=== PATIENT | male | born 1945 | race Caucasian/White ===

== ENCOUNTER → 2021-04-30 15:13 | Outpatient (BNVA) | payer OTHER, SELFPAY | PROVIDERS: Referring Provider Family Medicine; Visit Provider Orthopaedic Surgery | DX: M54.9 Dorsalgia, unspecified (principal); M47.896 Other spondylosis, lumbar region | CPT/HCPCS: 72120 ==

== ENCOUNTER 2021-06-11 14:02 | Emergency (ER) | payer OTHER, SELFPAY ==
[2021-06-11 14:08] VITALS: BP 174/84; PULSE 76; RESP 18; TEMP 36.9; O2SAT 95; BMI 29.0
[2021-06-11 14:19] VITALS: BP 150/74; PULSE 71; RESP 16; O2SAT 97
--- NOTE | 2021-06-11 14:26 | CT_ITS ---
WS: [id number] CT ABDOMEN AND PELVIS WITH CONTRAST HISTORY: lower abdominal pain, extensive ecchymosis TECHNIQUE: Imaging performed of the abdomen and pelvis with IV contrast. Single phase imaging of the abdomen. Coronal and sagittal reformats are submitted. All CT scans at [facility] use at [address] one of these dose optimization techniques: automated exposure control; mA and/or kV adjustment per patient size (includes targeted exams where dose is matched to clinical indication); or iterative re construction. IV CONTRAST: Omnipaque 300; 95 mL IV. Oral contrast: No DLP: 1892.9 mGy.cm COMPARISON: None available. Lower thorax: Interstitial thickening peripherally the lungs. Mildly enlarged heart. No hiatal hernia . Liver/biliary system: Normal size liver. Single granuloma in the central liver. There is a lobulated low-attenuation mass in the posterior superior RIGHT lobe the liver towards the diaphragmatic surface . This mass measures 2.9 x 2.0 cm and abuts the diaphragmatic surface. This is not a simple cyst. No bile duct dilatation. Gallbladder: Normal. No gallstones or wall thickening. No pericholecystic fluid. Pancreas: Normal size pancreas and pancreatic duct. No adjacent inflammation. Spleen: Normal size spleen. No mass or infarct. Adrenal glands: Normal. Right kidney: Mild perinephric stranding. No GI tract obstruction. Left kidney: Very mild perinephric stranding. No solid mass or obstruction. Aorta: Moderate atherosclerosis with no aneurysm. Lymphadenopathy: None. Free fluid: None. GI tract: Stomach is nondistended. Appendix is normal. No GI tract obstruction. No evidence for acute diverticulitis or colitis. Abdominal wall: Soft tissue stranding and thickening involving the abdominal wall over the pelvis. No focal collection or abnormal enhancement. Most likely due to cellulitis or ecchymosis. Pelvis: No free fluid or adenopathy within the pelvis. Well-distended urinary bladder. Prostate gland is only minimally enlarged encroaching into the base of the urinary bladder. There is enlargement of the most inferior bilateral rectus abdominis muscles. Enlargement and heterogeneity, LEFT greater th an RIGHT. This is also the site of the superficial subcutaneous stranding. Bones: Moderate degenerative disc disease throughout the lumbar spine. L4 anterolisthesis by 3 mm. Mi ld anterior wedging of T11 and T12 by 10%. CT/CT abdomen pelvis w con* [id number] IMPRESSION: 1. Enlargement and heterogeneity within the inferior most bilateral rectus abd ominis muscles. Overlying subcutaneous soft tissue stranding. These findings ar e most consistent with a small amount of hemorrhage into the rectus abdominis m uscles with overlying edema or superficial soft tissue bleeding. Most significa nt changes involving the inferior LEFT rectus abdominis muscle. 2. No extension of blood or hematoma into the peritoneal cavity. 3. Lobulated soft tissue mass is not a simple cyst involving the superior RIGH T lobe of the liver towards the diaphragmatic surface. Recommend follow-up ultr asound evaluation. This may not be visible by ultrasound due to its position an d body habitus. Alternatively three-phase hepatic CT or MR liver CT with contra st may be necessary.
--- NOTE | 2021-06-11 14:26 | ED_ITS ---
Documented by User: AKUA Lainez 06/11/21 16:26 HPI - Abdominal Pain General: Chief Complaint: Abdominal Pain Stated Complaint: abdominal pain and bruising Time Seen by Provider: 06/11/21 14:18 Source: patient and family Mode of arrival: ambulatory Limitations: no limitations History of Present Illness: Patient is a nice 76-year-old male who presents to ED today along with his for concerns of abdominal pain and abdominal bruising. Patient states 3 days ago he was lifting something heavy when he immediately felt something pull/pop/tear in his abdomen and began noticing pain. He states over the past 3 days he has developed rather extensive ecchymosis to the lower abdomen. He states he doesn't have much pain at rest but states with any kind of movement-especially going from lying down to sitting up-causes quite a bit of discomfort. No lightheadedness or dizziness. No diaphoresis. He has no trouble with ambulating. MD elicited complaint: abdominal pain Onset (ago): day(s) Pain Consistency: intermittent Location: Other (across lower abdomen) Radiation: none Migration to: no migration Exacerbating factors: movement Relieving factors: rest Associated Symptoms: Denies change in bowel habits, chills, diarrhea, dysuria, fever(s), hematuria, nausea, syncope and vomiting Review of Systems Const: Denies: fever(s), chills or body aches Eyes: Denies: change in vision or blurry vision Card: Denies: chest pain, palpitations, irregular heart rhythm, edema, lightheadedness, syncope or pre-syncope Resp: Denies: dyspnea GI: Reports: abdominal pain; Denies: nausea, vomiting, diarrhea or change in bowel habits : Denies: flank pain, dysuria, hematuria, genital pain, testicular pain, testicular mass or scrotal swelling Musc: Denies: neck pain, back pain, extremity pain or joint pain Skin/Breast: Reports: other (abdominal ecchymosis); Denies: rash Neuro: Denies: headache(s), numbness in extremities, weakness in extremities, sensory changes, difficulty walking or dizziness PFS ED PFSH: Social History Smoking and tobacco status: never smoked Physical Exam Const: COMMON NORMALS: no acute distress, patient oriented x3, no limitations and alert GENERAL APPEARANCE: cooperative NUTRITIONAL APPEARANCE: overweight ORIENTATION/CONSCIOUSNESS: Yes awake, Yes oriented to person and Yes oriented to time Chest: COMMONS NORMALS: normal inspection of the chest and normal palpation of entire chest wall Resp: COMMON NORMALS: normal respiratory effort and clear to auscultation bilaterally EFFORT & INSPECTION: Yes able to speak in complete sentences AUSCULTATION: clear to auscultation bilaterally Cardio: COMMON NORMALS: regular rate and regular rhythm RATE: regular rate RHYTHM: regular rhythm GI: COMMON NORMALS: Soft to palpation and No hepatosplenomegaly present INSPECTION: Yes abdominal wall ecchymosis (extensive ecchymosis throughout lower abdomen ) AUSCULTATION: Yes normoactive bowel sounds PALPATION: Yes Soft to palpation, Yes Tenderness to palpation present (GI) (mild tenderness throughout lower abdomen), No Guarding due to palpation present (GI), No Rigid due to palpation and Yes No hepatosplenomegaly present : COMMON NORMALS: Yes no CVA tenderness BLADDER/KIDNEY EXAM: Yes no CVA tenderness Back/Pelvis: COMMON NORMALS: no CVA tenderness, thoracic and lumbar spine normal to inspection, no thoracic nor lumbar tenderness and thoraco-lumbar ROM normal Extremity: COMMON NORMALS: normal to inspection, capillary refill normal and no clubbing, cyanosis or edema Neuro: COMMON NORMALS: patient oriented x3, moves all extremities, no focal motor deficits, no sensory deficits noted and gait normal SENSORIUM/ORIENTATION: Yes alert, Yes oriented to person and Yes oriented to time Skin: NARRATIVE SKIN EXAM: see abdominal exam for pertinent skin findings Course Vital Signs: Vital signs: Vital Signs Temperature 98.5 F 06/11/21 14:08 Pulse Rate 71 06/11/21 14:19 Respiratory Rate 16 06/11/21 14:19 Blood Pressure 150/74 06/11/21 14:19 Pulse Oximetry 97 06/11/21 14:19 MDM - Abdominal Pain Medical Decision Making Patient has hematoma to his rectus abdominis muscles from lifting. Patient's vital signs are stable. He has no pain at rest. He has a normal hemoglobin- remainder of blood work is unremarkable. Patient is not on anticoagulation. UA does look suspicious for UTI however patient is completely asymptomatic. He does not have a history of UTIs. We will culture urine and can place on antibiotics if necessary. Patient was made aware of incidental finding of soft tissue mass involving his liver and the [facility]. Patient and verbalized understanding. Return to ED precautions given verbally to patient including worsening abdominal pain, worsening bruising, lightheadedness/dizziness/passing out episodes, or any other concerns they may have. Lab Data : 06/11/21 14:36 06/11/21 14:36 Labs/Radiology: Radiology Impressions Abdomen/Pelvis CT 06/11/21 14:26 IMPRESSION: 1. Enlargement and heterogeneity within the inferior most bilateral rectus abdominis muscles. Overlying subcutaneous soft tissue stranding. These findings are most consistent with a small amount of hemorrhage into the rectus abdominis muscles with overlying edema or superficial soft tissue bleeding. Most significant changes involving the inferior LEFT rectus abdominis muscle. 2. No extension of blood or hematoma into the peritoneal cavity. 3. Lobulated soft tissue mass is not a simple cyst involving the superior RIGHT lobe of the liver towards the diaphragmatic surface. Recommend follow-up ultrasound evaluation. This may not be visible by ultrasound due to its position and body habitus. Alternatively three-phase hepatic CT or MR liver CT with contrast may be necessary. Laboratory Results WBC 8.0 10^3/uL (4.0-10.0) 06/11/21 14:36 RBC 4.21 10^6/uL (4.1-5.3) 06/11/21 14:36 Hgb 12.7 g/dL (11.7-16.6) 06/11/21 14:36 Hct 39.1 % (42.0-52.0) L 06/11/21 14:36 MCV 92.9 fl (80-94) 06/11/21 14:36 MCH 30.2 pg (28.0-34.0) 06/11/21 14:36 MCHC 32.5 g/dL (30.0-36.0) 06/11/21 14:36 RDW 13.5 % (12.1-15.1) 06/11/21 14:36 Plt Count 207 10^3/cmm (130-400) 06/11/21 14:36 MPV 11.2 fL (7.4-10.4) H 06/11/21 14:36 Neut % (Auto) 71.1 % 06/11/21 14:36 Lymph % (Auto) 18.4 % 06/11/21 14:36 [place] % (Auto) 7.1 % 06/11/21 14:36 Eos % (Auto) 2.6 % 06/11/21 14:36 Baso % (Auto) 0.4 % 06/11/21 14:36 Neut # (Auto) 5.69 10^3/uL (1.8-7.7) 06/11/21 14:36 Lymph # (Auto) 1.5 10^3/uL (0.8-4.8) 06/11/21 14:36 [place] # (Auto) 0.6 10^3/uL (0.2-0.9) 06/11/21 14:36 Eos # (Auto) 0.2 10^3/uL (0.0-0.8) 06/11/21 14:36 Baso # (Auto) 0.0 10^3/uL (0.0-0.1) 06/11/21 14:36 Nucleated RBC % (auto) 0 % 06/11/21 14:36 Nucleated RBCs # 0.0 /100WBC 06/11/21 14:36 PT 12.70 SECONDS (12.1-14.9) 06/11/21 14:36 INR 0.92 (0.8-1.2) 06/11/21 14:36 APTT 28.3 SECONDS (23.9-36.7) 06/11/21 14:36 Sodium 133 mmol/L (136-145) L 06/11/21 14:36 Potassium 4.7 mmol/L (3.5-5.1) 06/11/21 14:36 Chloride 97 mmol/L (98-107) L 06/11/21 14:36 Carbon Dioxide 25 mmol/L (22-29) 06/11/21 14:36 Anion Gap 15.7 (5-19) 06/11/21 14:36 BUN 29 mg/dL (8-23) H 06/11/21 14:36 Creatinine 1.0 mg/dL (0.7-1.2) 06/11/21 14:36 GFR Calculation Not Reportable 06/11/21 14:36 Glucose 167 mg/dL (65-115) H 06/11/21 14:36 Calculated Osmolality 286 mOsm/kg (285-295) 06/11/21 14:36 Calcium 8.6 mg/dL (8.5-10.5) 06/11/21 14:36 Total Bilirubin 0.3 mg/dL (0.15-1.2) 06/11/21 14:36 AST 13 U/L (0-40) 06/11/21 14:36 ALT 9 U/L (0-41) 06/11/21 14:36 Alkaline Phosphatase 101 IU/L (40-130) 06/11/21 14:36 Total Protein 6.2 g/dL (6.6-8.7) L 06/11/21 14:36 Albumin 3.8 g/dL (3.5-5.2) 06/11/21 14:36 Globulin 2.4 g/dL (1.3-4.6) 06/11/21 14:36 Lipase 20 U/L (13-60) 06/11/21 14:36 Urine Color Yellow (Yellow) 06/11/21 14:49 Urine Appearance Sl cloudy (CLEAR) A 06/11/21 14:49 Urine pH 5 (5-7) 06/11/21 14:49 Ur Specific [place] 1.010 (1.005-1.030) 06/11/21 14:49 Urine Protein Neg (Negative) 06/11/21 14:49 Urine Glucose (UA) Norm (Normal) 06/11/21 14:49 Urine Ketones Negative (Negative) 06/11/21 14:49 Urine Blood Neg (Negative) 06/11/21 14:49 Urine Nitrate Positive (Negative) H 06/11/21 14:49 Urine Bilirubin Neg (Negative) 06/11/21 14:49 Urine Urobilinogen Neg mg/dL (Negative) 06/11/21 14:49 Ur Leukocyte Esterase 2+ (Negative) H 06/11/21 14:49 Urine RBC 0-4 /hpf (0-2) H 06/11/21 14:49 Urine WBC 55-80 /hpf (0-5) H 06/11/21 14:49 Ur Squamous Epith Cells Rare /hpf (0-5) 06/11/21 14:49 Amorphous Sediment Not Reportable 06/11/21 14:49 Urine Bacteria 2+ /hpf (NONE) H 06/11/21 14:49 Discharge Plan Discharge Patient Disposition: Home Clinical Impression: Strain of rectus abdominis muscle Condition: Stable Prescriptions: No Action No Known Home Medications 0RF Discharge Orders: Discharge ED (Routine); Ordered 06/11/21 Ordered By: Nicole Gramajo Activity Restrictions/Additional Instructions: As we discussed limit lifting over the next 2 to 3 weeks to 5 to 10 pounds. You may apply ice to abdomen for 15-20 mins every other hour (do not apply ice directly to skin). You need to return to the ED for worsening bruising, wo rsening abdominal pains, lightheadedness/dizziness/passing out episodes, or any other concerns you may have. Coding Level of Care Code ED Semaphore Operator for Chg Fwd Exam Comprehensive Documented by User: Larry Gillespie DO 06/11/21 16:58 HPI - Abdominal Pain General: Chief Complaint: Abdominal Pain Stated Complaint: abdominal pain and bruising Time Seen by Provider: 06/11/21 14:18 [facility] ED PFSH: Social History Smoking and tobacco status: never smoked Course Vital Signs: Vital signs: Vital Signs Temperature 98.5 F 06/11/21 14:08 Pulse Rate 71 06/11/21 14:19 Respiratory Rate 16 06/11/21 14:19 Blood Pressure 150/74 06/11/21 14:19 Pulse Oximetry 97 06/11/21 14:19 MDM - Abdominal Pain Medical Decision Making Patient has hematoma to his rectus abdominis muscles from lifting. Patient's vital signs are stable. He has no pain at rest. He has a normal hemoglobin- remainder of blood work is unremarkable. Patient is not on anticoagulation. UA does look suspicious for UTI however patient is completely asymptomatic. He does not have a history of UTIs. We will culture urine and can place on antibiotics if necessary. Patient was made aware of incidental finding of soft tissue mass involving his liver and the need [facility]. Patient and verbalized understanding. Return to ED precautions given verbally to patient including worsening abdominal pain, worsening bruis ing, lightheadedness/dizziness/passing out episodes, or any other concerns they may have. Chart reviewed and patient discussed with midlevel. Agree with assessment and plan. Lab Data : 06/11/21 14:36 06/11/21 14:36 Labs/Radiology: Radiology Impressions Abdomen/Pelvis CT 06/11/21 14:26 IMPRESSION: 1. Enlargement and heterogeneity within the inferior most bilateral rectus abdominis muscles. Overlying subcutaneous soft tissue stranding. These findings are most consistent with a small amount of hemorrhage into the rectus abdominis muscles with overlying edema or superficial soft tissue bleeding. Most significant changes involving the inferior LEFT rectus abdominis muscle. 2. No extension of blood or hematoma into the peritoneal cavity. 3. Lobulated soft tissue mass is not a simple cyst involving the superior RIGHT lobe of the liver towards the diaphragmatic surface. Recommend follow-up ultrasound evaluation. This may not be visible by ultrasound due to its position and body habitus. Alternatively three-phase hepatic CT or MR liver CT with contrast may be necessary. Laboratory Results WBC 8.0 10^3/uL (4.0-10.0) 06/11/21 14:36 RBC 4.21 10^6/uL (4.1-5.3) 06/11/21 14:36 Hgb 12.7 g/dL (11.7-16.6) 06/11/21 14:36 Hct 39.1 % (42.0-52.0) L 06/11/21 14:36 MCV 92.9 fl (80-94) 06/11/21 14:36 MCH 30.2 pg (28.0-34.0) 06/11/21 14:36 MCHC 32.5 g/dL (30.0-36.0) 06/11/21 14:36 RDW 13.5 % (12.1-15.1) 06/11/21 14:36 Plt Count 207 10^3/cmm (130-400) 06/11/21 14:36 MPV 11.2 fL (7.4-10.4) H 06/11/21 14:36 Neut % (Auto) 71.1 % 06/11/21 14:36 Lymph % (Auto) 18.4 % 06/11/21 14:36 [place] % (Auto) 7.1 % 06/11/21 14:36 Eos % (Auto) 2.6 % 06/11/21 14:36 Baso % (Auto) 0.4 % 06/11/21 14:36 Neut # (Auto) 5.69 10^3/uL (1.8-7.7) 06/11/21 14:36 Lymph # (Auto) 1.5 10^3/uL (0.8-4.8) 06/11/21 14:36 [place] # (Auto) 0.6 10^3/uL (0.2-0.9) 06/11/21 14:36 Eos # (Auto) 0.2 10^3/uL (0.0-0.8) 06/11/21 14:36 Baso # (Auto) 0.0 10^3/uL (0.0-0.1) 06/11/21 14:36 Nucleated RBC % (auto) 0 % 06/11/21 14:36 Nucleated RBCs # 0.0 /100WBC 06/11/21 14:36 PT 12.70 SECONDS (12.1-14.9) 06/11/21 14:36 INR 0.92 (0.8-1.2) 06/11/21 14:36 APTT 28.3 SECONDS (23.9-36.7) 06/11/21 14:36 Sodium 133 mmol/L (136-145) L 06/11/21 14:36 Potassium 4.7 mmol/L (3.5-5.1) 06/11/21 14:36 Chloride 97 mmol/L (98-107) L 06/11/21 14:36 Carbon Dioxide 25 mmol/L (22-29) 06/11/21 14:36 Anion Gap 15.7 (5-19) 06/11/21 14:36 BUN 29 mg/dL (8-23) H 06/11/21 14:36 Creatinine 1.0 mg/dL (0.7-1.2) 06/11/21 14:36 GFR Calculation Not Reportable 06/11/21 14:36 Glucose 167 mg/dL (65-115) H 06/11/21 14:36 Calculated Osmolality 286 mOsm/kg (285-295) 06/11/21 14:36 Calcium 8.6 mg/dL (8.5-10.5) 06/11/21 14:36 Total Bilirubin 0.3 mg/dL (0.15-1.2) 06/11/21 14:36 AST 13 U/L (0-40) 06/11/21 14:36 ALT 9 U/L (0-41) 06/11/21 14:36 Alkaline Phosphatase 101 IU/L (40-130) 06/11/21 14:36 Total Protein 6.2 g/dL (6.6-8.7) L 06/11/21 14:36 Albumin 3.8 g/dL (3.5-5.2) 06/11/21 14:36 Globulin 2.4 g/dL (1.3-4.6) 06/11/21 14:36 Lipase 20 U/L (13-60) 06/11/21 14:36 Urine Color Yellow (Yellow) 06/11/21 14:49 Urine Appearance Sl cloudy (CLEAR) A 06/11/21 14:49 Urine pH 5 (5-7) 06/11/21 14:49 Ur Specific [place] 1.010 (1.005-1.030) 06/11/21 14:49 Urine Protein Neg (Negative) 06/11/21 14:49 Urine Glucose (UA) Norm (Normal) 06/11/21 14:49 Urine Ketones Negative (Negative) 06/11/21 14:49 Urine Blood Neg (Negative) 06/11/21 14:49 Urine Nitrate Positive (Negative) H 06/11/21 14:49 Urine Bilirubin Neg (Negative) 06/11/21 14:49 Urine Urobilinogen Neg mg/dL (Negative) 06/11/21 14:49 Ur Leukocyte Esterase 2+ (Negative) H 06/11/21 14:49 Urine RBC 0-4 /hpf (0-2) H 06/11/21 14:49 Urine WBC 55-80 /hpf (0-5) H 06/11/21 14:49 Ur Squamous Epith Cells Rare /hpf (0-5) 06/11/21 14:49 Amorphous Sediment Not Reportable 06/11/21 14:49 Urine Bacteria 2+ /hpf (NONE) H 06/11/21 14:49 Discharge Plan Discharge Patient Disposition: Home Clinical Impression: Strain of rectus abdominis muscle Condition: Stable Prescriptions: No Action No Known Home Medications 0RF Discharge Orders: Discharge ED (Routine); Ordered 06/11/21 Ordered By: Nicole Gramajo Activity Restrictions/Additional Instructions: As we discussed limit lifting over the next 2 to 3 weeks to 5 to 10 pounds. You may apply ice to abdomen for 15-20 mins every other hour (do not apply ice directly to skin). You need to return to the ED for worsening bruising, worsening abdominal pains, lightheadedness/dizziness/passing out episodes, or any other concerns you may have. Coding Level of Care Code ED Semaphore Operator for Jm Fwd Exam Comprehensive
[2021-06-11 14:40] LABS: Basophils % 0.4 %; Eosinophils # 0.2 10^3/uL (0.0-0.8); Eosinophils % 2.6 %; Hematocrit 39.1 % (42.0-52.0); Hemoglobin 12.7 g/dL (11.7-16.6); Lymphocytes # 1.5 10^3/uL (0.8-4.8); Lymphocytes % 18.4 %; Mean Corpuscular HGB Conc 32.5 g/dL (30.0-36.0); Mean Corpuscular Hemoglobin 30.2 pg (28.0-34.0); Mean Corpuscular Volume 92.9 fl (80-94); Mean Platelet Volume 11.2 fL (7.4-10.4); Monocytes # 0.6 10^3/uL (0.2-0.9); Monocytes % 7.1 %; Neutrophils # 5.69 10^3/uL (1.8-7.7); Neutrophils % 71.1 %; Nucleated Red Blood Cells % 0 %; Platelet Count 207 10^3/cmm (130-400); Red Blood Count 4.21 10^6/uL (4.1-5.3); Red Cell Distribution Width 13.5 % (12.1-15.1)
[2021-06-11 14:57] LABS: INR 0.92 (0.8-1.2)
[2021-06-11 14:58] LABS: Partial Thromboplastin Time 28.3 SECONDS (23.9-36.7)
[2021-06-11 15:06] LABS: Alanine Aminotransferase 9 U/L (0-41); Albumin Level 3.8 g/dL (3.5-5.2); Alkaline Phosphatase 101 IU/L (40-130); Anion Gap 15.7 (5-19); Aspartate Amino Transferase 13 U/L (0-40); Blood Urea Nitrogen 29 mg/dL (8-23); Calcium 8.6 mg/dL (8.5-10.5); Carbon Dioxide 25 mmol/L (22-29); Chloride 97 mmol/L (98-107); Globulin 2.4 g/dL (1.3-4.6); Glucose 167 mg/dL (65-115); Lipase 20 U/L (13-60); Osmolality Calculated 286 mOsm/kg (285-295); Potassium 4.7 mmol/L (3.5-5.1); Sodium 133 mmol/L (136-145); Total Bilirubin 0.3 mg/dL (0.15-1.2); Total Protein 6.2 g/dL (6.6-8.7)
[2021-06-11 15:18] LABS: Urine Color Yellow (Yellow)
[2021-06-11 15:19] LABS: Add Urine Microscopic? YES; Bilirubin Urine Neg (Negative); Blood Urine Neg (Negative); Glucose Urine UA Norm (Normal); Ketones Urine Negative (Negative); Leukocyte Esterase Urine 2+ (Negative); Nitrate Urine Positive (Negative); Protein Urine Neg (Negative); RBC Urine 0-4 /hpf (0-2); Urobilinogen Urine Neg (Negative); WBC Urine 55-80 /hpf (0-5); pH Urine 5 (5-7)
[2021-06-11 15:20] LABS: Add Urine Culture? Yes; Bacteria Urine 2+ /hpf; Squamous Epithelial Cell Urine RARE /hpf (0-5)
[2021-06-11] MEDS: iohexol 300 mg/mL 100 mL Btl IV (15:24)
== END 2021-06-11 16:27 | disposition home or self-care (01) ==
PROVIDERS: Emergency Medicine; Emergency Provider Physician Assistant
DX: S39.011A Strain of muscle, fascia and tendon of abdomen, initial encounter (principal); X50.0XXA Overexertion from strenuous movement or load, initial encounter
CPT/HCPCS: 36415; 74177; 80053; 81001; 83690; 85025; 85610; 85730; 87077; 87086; 87186; 99283; Q9967

== ENCOUNTER 2021-06-27 12:56 | Outpatient (CLI) | payer OTHER, SELFPAY ==
--- NOTE | 2021-06-27 13:16 | USCV_ITS ---
William Hartman Age: 76 Gender: M : 1945 Exam Date: 06/27/2021 13:29 Ordering Phys: Nori Nam MD Technologist: RODRIGUE Exam Location: [facility] [place] [facility] [place] Indication: BILATERAL CAROTID BRUITS Risk Factors: Previous Vascular Surgery: Right Brachial BP: / Left Brachial BP: / Right Left Velocity (cm/s) Spectral Plaque Velocity (cm/s) Spectral Plaque Syst/Diast Broadening Syst/Diast Broadening 71.70/ 9.90 Prox CCA 90.70 / 15.80 60.70/ 11.10 Mid CCA 60.60 / 10.10 63.80/ 13.20 Distal CCA 56.70 / 10.90 52.20/ 9.90 Prox ICA 31.60 / 10.50 52.60/ 13.30 Mid ICA 61.80 / 18.90 38.10/ 10.30 Distal ICA 52.90 / 17.00 90.10 ECA 97.20 0.87 ICA/CCA 1.02 Antegrade Vertebral Antegrade 32.40/ 9.60 cm/s 62.80/ 16.50 cm/s Tri Subclavian Tri 59.50 93.70 FINDINGS Comparison: none available. No significant elevation of systolic or diastolic velocities. Minimal bilateral, plaque in the bifurcations with no elevation of velocity. Antegrade vertebral arteries. CONCLUSIONS Bilateral ICA stenosis less than 50%. Mild carotid atherosclerosis. Dr. Remedios Salas DO (Electronically Signed) Final Date: 27 June 2021 15:58 S
== END 2021-06-27 12:57 | disposition home or self-care (01) ==
PROVIDERS: PCP Family Medicine; Visit Provider Family Medicine
DX: R09.89 Other specified symptoms and signs involving the circulatory and respiratory systems (principal); I65.23 Occlusion and stenosis of bilateral carotid arteries
CPT/HCPCS: 93880

== ENCOUNTER 2021-11-19 18:06 | Emergency (ER) | payer OTHER, MEDICARE, SELFPAY ==
[2021-11-19 18:22] VITALS: BP 168/61; PULSE 78; RESP 16; TEMP 36.4; O2SAT 93; BMI 29.0
--- NOTE | 2021-11-19 18:38 | XRR_ITS ---
PROCEDURE INFORMATION: Exam: XR Chest Exam date and time: 11/19/2021 7:26 PM Age: 76 years old Clinical indication: Dyspnea; Prior surgery; Surgery date: 6+ months; Surgery type: Pacemaker , stints; Additional info: SOB TECHNIQUE: Imaging protocol: Radiologic exam of the chest. Views: 1 view. COMPARISON: CT abdomen pelvis w con* [id number] 06/11/2021 3:24 PM FINDINGS: Tubes, catheters and devices: Two lead pacer device noted in the left chest wall. Lungs: No consolidation. Pleural spaces: Bilateral small volume pleural effusions. No pneumothorax. Heart/Mediastinum: Mild cardiomegaly. Bones/joints: Visualized osseous structures are intact. XR/XR chest 1V portable [id number] IMPRESSION: Bilateral small volume pleural effusions with mild cardiomegaly.
--- NOTE | 2021-11-19 18:38 | ECG_ITS ---
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 Measurements Intervals [place] Rate: P: [place]: QRS: QRSD: T: QT: QTc: Interpretive Statements SINUS RHYTHM No previous ECG available for comparison Electronically Signed On 11-20-2021 17:58:09 CDT by Dawson Verma M.D. [email or web address]
[2021-11-19 20:06] LABS: Alanine Aminotransferase 14 U/L (0-41); Albumin Level 3.7 g/dL (3.5-5.2); Alkaline Phosphatase 104 IU/L (40-130); Aspartate Amino Transferase 15 U/L (0-40); Blood Urea Nitrogen 45 mg/dL (8-23); Calcium 8.9 mg/dL (8.5-10.5); Carbon Dioxide 23 mmol/L (22-29); Chloride 101 mmol/L (98-107); Glucose 169 mg/dL (65-115); NT Pro B Type Natriuretic Pept 3991 pg/mL (0-450); Osmolality Calculated 295 mOsm/kg (285-295); Sodium 135 mmol/L (136-145); Total Bilirubin 0.3 mg/dL (0.15-1.2); Total Protein 6.7 g/dL (6.6-8.7)
[2021-11-19 20:08] LABS: Basophils % 0.4 %; Eosinophils # 0.2 10^3/uL (0.0-0.8); Hematocrit 31.7 % (42.0-52.0); Hemoglobin 9.9 g/dL (11.7-16.6); Lymphocytes # 1.5 10^3/uL (0.8-4.8); Lymphocytes % 19.1 %; Mean Corpuscular HGB Conc 31.2 g/dL (30.0-36.0); Mean Corpuscular Hemoglobin 27.9 pg (28.0-34.0); Mean Corpuscular Volume 89.3 fl (80-94); Mean Platelet Volume 11.5 fL (7.4-10.4); Monocytes # 0.6 10^3/uL (0.2-0.9); Monocytes % 8.1 %; Neutrophils # 5.34 10^3/uL (1.8-7.7); Neutrophils % 69.9 %; Nucleated Red Blood Cells % 0 %; Platelet Count 268 10^3/cmm (130-400); Red Blood Count 3.55 10^6/uL (4.1-5.3); White Blood Count 7.6 10^3/uL (4.0-10.0)
--- NOTE | 2021-11-19 20:10 | W.ED.SOB ---
HPI - SOB/Dyspnea General: Chief Complaint: Shortness of Breath/Dyspnea Stated Complaint: sob Time Seen by Provider: 11/19/21 19:35 Source: patient Mode of arrival: ambulatory Limitations: no limitations History of Present Illness: HPI Narrative: 76-year-old male has extensive history of congestive heart failure he takes 20 of Lasix in the morning 20 in the evening he states that he had [facility] had been started on antibiotics that he had finished. He states that he had [facility] and they done an x-ray but states that did not have a provider or radiologist and recommended him to come to the ER here to be further evaluated. States he is felt much improved he has some dyspnea but he states its more chronic in nature he has had a mild cough but it is improved no fever he has had some lower extremity swelling. Associated symptoms: Deny abdominal pain, chest pain, fever(s), nausea or vomiting Review of Systems Const: Denies: fever(s), chills, body aches or change in appetite Eyes: Denies: blurry vision or eye discomfort ENMT: Denies: throat pain or dental pain Card: Denies: chest pain Resp: Reports: dyspnea and non-productive cough GI: Denies: abdominal pain, nausea, vomiting or diarrhea : Denies: dysuria Musc: Reports: extremity swelling Skin/Breast: Denies: rash Neuro: Denies: headache(s) Psych: Denies: depression Dominic/Lymph: Denies: easy bruising All/Imm: Denies: urticaria PFSH ED PFSH: Medical History CHF (congestive heart failure), NYHA class III Diabetes mellitus HTN (hypertension) Social History Smoking and tobacco status: former smoker Physical Exam Const: COMMON NORMALS: no acute distress, patient oriented x3 and healthy appearing HENMT: COMMON NORMALS: normocephalic and atraumatic HEAD & SCALP: normocephalic and atraumatic Eye: COMMON NORMALS: Equal, round and reactive pupils present and EOMs intact bilaterally PUPIL: Yes Equal, round and reactive pupils present Neck/C-Spine: COMMON NORMALS: full ROM and supple Chest: COMMONS NORMALS: normal inspection of the chest and normal palpation of entire chest wall Resp: COMMON NORMALS: normal respiratory effort, No retractions, No use of accessory muscles and clear to auscultation bilaterally AUSCULTATION: clear to auscultation bilaterally Cardio: COMMON NORMALS: regular rate, regular rhythm and No murmurs present (Cardio) RATE: regular rate RHYTHM: regular rhythm GI: COMMON NORMALS: Normal to inspection, nondistended, normoactive bowel sounds present, Soft to palpation, non-tender and no masses PALPATION: Yes Soft to palpation Extremity: COMMON NORMALS: full ROM NARRATIVE EXTREMITY EXAM: 2+ le edema Neuro: COMMON NORMALS: patient oriented x3, moves all extremities and no focal motor deficits Psych: COMMON NORMALS: mental status grossly normal, Normal thought process present and cooperative THOUGHT PROCESS: Normal thought process present Skin: COMMON NORMALS: no rashes or lesions noted and no wounds GENERAL SKIN EXAM: no rashes or lesions noted Course Vital Signs: Vital signs: Vital Signs Temperature 97.5 F L 11/19/21 18:22 Pulse Rate 78 11/19/21 18:22 Respiratory Rate 16 11/19/21 18:22 Blood Pressure 168/61 11/19/21 18:22 Pulse Oximetry 93 11/19/21 18:22 MDM - SOB/Dyspnea Medical Decision Making Patient presents here with congestive heart failure he is well-appearing here in no distress with very minimal dyspnea he does have some slight lower extremity edema did give him a dose of IV Lasix he has no signs of pneumonia here he is stable for discharge follow-up with PCP in 3 to 5 days and return if worsening. Lab Data : 11/19/21 19:24 11/19/21 19:24 Labs/Radiology: Radiology Impressions Chest X-Ray 11/19/21 18:38 IMPRESSION: Bilateral small volume pleural effusions with mild cardiomegaly. Laboratory Results WBC 7.6 10^3/uL (4.0-10.0) 11/19/21 19:24 RBC 3.55 10^6/uL (4.1-5.3) L 11/19/21 19:24 Hgb 9.9 g/dL (11.7-16.6) L 11/19/21 19:24 Hct 31.7 % (42.0-52.0) L 11/19/21 19:24 MCV 89.3 fl (80-94) 11/19/21 19:24 MCH 27.9 pg (28.0-34.0) L 11/19/21 19: MCHC 31.2 g/dL (30.0-36.0) 11/19/21 19:24 RDW 16.0 % (12.1-15.1) H 11/19/21 19:24 Plt Count 268 10^3/cmm (130-400) 11/19/21 19: MPV 11.5 fL (7.4-10.4) H 11/19/21 19:24 Neut % (Auto) 69.9 % 11/19/21 19: Lymph % (Auto) 19.1 % 11/19/21 19: [place] % (Auto) 8.1 % 11/19/21 19: Eos % (Auto) 2.0 % 11/19/21 19:24 Baso % (Auto) 0.4 % 11/19/21: Neut # (Auto) 5.34 10^3/uL (1.8-7.7) 11/19/21 19:24 Lymph # (Auto) 1.5 10^3/uL (0.8-4.8) 11/19/21 19:24 [place] # (Auto) 0.6 10^3/uL (0.2-0.9) 11/19/21 19:24 Eos # (Auto) 0.2 10^3/uL (0.0-0.8) 11/19/21: Baso # (Auto) 0.0 10^3/uL (0.0-0.1) 11/19/21 19:24 Nucleated RBC % (auto) 0 % 11/19/21: Nucleated RBCs # 0.0 /100WBC 11/19/21 19:24 Sodium 135 mmol/L (136-145) L 11/19/21 19:24 Potassium 5.0 mmol/L (3.5-5.1) 11/19/21 19:24 Chloride 101 mmol/L (98-107) 11/19/21 19:24 Carbon Dioxide 23 mmol/L (22-29) 11/19/21 19:24 Anion Gap 16.0 (5-19) 11/19/21 19:24 BUN 45 mg/dL (8-23) H 11/19/21 19:24 Creatinine 1.4 mg/dL (0.7-1.2) H 11/19/21 19:24 GFR Calculation Not Reportable 11/19/21 19:24 Glucose 169 mg/dL (65-115) H 11/19/21 19:24 Calculated Osmolality 295 mOsm/kg (285-295) 11/19/21 19:24 Calcium 8.9 mg/dL (8.5-10.5) 11/19/21 19:24 Total Bilirubin 0.3 mg/dL (0.15-1.2) 11/19/21 19:24 AST 15 U/L (0-40) 11/19/21 19:24 ALT 14 U/L (0-41) 11/19/21 19:24 Alkaline Phosphatase 104 IU/L (40-130) 11/19/21 19:24 NT-Pro-B Natriuret Pep 3991 pg/mL (0-450) H 11/19/21 19:24 Total Protein 6.7 g/dL (6.6-8.7) 11/19/21 19:24 Albumin 3.7 g/dL (3.5-5.2) 11/19/21 19:24 Globulin 3.0 g/dL (1.3-4.6) 11/19/21 19:24 Discharge Plan Discharge Patient Disposition: Home Clinical Impression: CHF (congestive heart failure), NYHA class III Condition: Stable Prescriptions: No Action potassium chloride 20 mEq tablet extended release 20 meq PO DAILY 0RF metformin 850 mg tablet 850 mg PO DAILY 0RF trazodone 100 mg tablet 100 mg PO DAILY 0RF citalopram 20 mg tablet 20 mg PO DAILY 0RF hydrocodone-acetaminophen 5-325 mg tablet 1 tab PO BID PRN0RF furosemide 20 mg tablet 20 mg PO QAM 0RF Discharge Orders: Discharge ED (Routine); Ordered 11/19/21 Ordered By: Corby Allen Referrals: Nori Nam MD [Primary Care Provider] - Discharge Diet: Advance as tolerated Discharge Activity: Resume usual activity Patient Instructions: Heart Failure (ED) Coding Level of Care Code ED Speech Therapist Early Intervention for Chg Fwd Exam Comprehensive
[2021-11-19] MEDS: FUROsemide 10 mg/mL SDV 10mL 60 MG IVP (20:42)
[2021-11-19 21:40] VITALS: BP 149/61; PULSE 75; RESP 24; TEMP 36.7; O2SAT 94
== END 2021-11-19 21:44 | disposition home or self-care (01) ==
PROVIDERS: Emergency Provider Emergency Medicine; PCP Family Medicine
DX: I11.0 Hypertensive heart disease with heart failure (principal); I50.9 Heart failure, unspecified; E11.9 Type 2 diabetes mellitus without complications; Z79.84 Long term (current) use of oral hypoglycemic drugs
CPT/HCPCS: 36415; 71045; 80053; 83880; 85025; 93005; 96374; 99284; J1940

== ENCOUNTER 2021-11-25 19:56 | Emergency (ER) | payer OTHER, MEDICARE, SELFPAY ==
--- NOTE | 2021-11-25 20:00 | XRR_ITS ---
PROCEDURE INFORMATION: Exam: XR Chest Exam date and time: 11/25/2021 9:14 PM Age: 76 years old Clinical indication: Fever and shortness of breath; Additional info: SOB TECHNIQUE: Imaging protocol: Radiologic exam of the chest. Views: 1 view. COMPARISON: CR (CHEST, ) 11/19/2021 7:26 PM FINDINGS: Tubes, catheters and devices: Pacemaker. Lungs: Bibasilar airspace infiltrates. Pleural spaces: Trace right pleural effusion. Heart/Mediastinum: Unremarkable. No cardiomegaly. Bones/joints: Unremarkable. XR/XR chest 1V portable [id number] IMPRESSION: 1. Trace right pleural effusion. 2. Bibasilar airspace infiltrates.
[2021-11-25 20:09] VITALS: BP 122/54; PULSE 60; RESP 18; TEMP 37.2; O2SAT 95; BMI 29.0
--- NOTE | 2021-11-25 21:24 | ECG_ITS ---
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 Measurements Intervals [place] Rate: 76 P: -39 DE: 184 QRS: 22 QRSD: 113 T: 20 QT: 405 QTc: 457 Interpretive Statements SINUS RHYTHM INCOMPLETE RIGHT BUNDLE BRANCH BLOCK [90+ ms QRS DURATION, TERMINAL R IN V1/V2, 40+ ms S IN I/aVL/V4/V5/V6] Compared to ECG 11/19/2021 20:26:43 Incomplete right bundle-branch block now present Electronically Signed On 11-26-2021 17:32:47 CDT by Dawson Verma M.D. [id number]
--- NOTE | 2021-11-25 21:30 | W.ED.SOB ---
HPI - SOB/Dyspnea General: Chief Complaint: Shortness of Breath/Dyspnea Stated Complaint: Fever/SOB Time Seen by Provider: 11/25/21 21:14 Source: patient Mode of arrival: ambulatory History of Present Illness: HPI Narrative: 76-year-old male who has a history congestive heart failure states that over the last 2 days he has been having a fever along with a cough, some shortness of breath. Patient denies any worsening improving factors. Patient is 95% on room air here. He denies any worsening improving factors. Denies any known sick contacts. He has had a history of pneumonia in the past. Associated symptoms: Reports fever(s); Deny abdominal pain, chest pain, nausea or vomiting Review of Systems Const: Reports: fever(s) and chills Eyes: Denies: blurry vision or eye discomfort ENMT: Denies: throat pain or dental pain Card: Denies: chest pain Resp: Reports: dyspnea and non-productive cough GI: Denies: abdominal pain, nausea, vomiting or diarrhea : Denies: dysuria Musc: Denies: neck pain or back pain Skin/Breast: Denies: rash Neuro: Denies: headache(s) Psych: Denies: depression Dominic/Lymph: Denies: easy bruising All/Imm: Denies: urticaria PFSH ED PFSH: Medical History CHF (congestive heart failure), NYHA class III Diabetes mellitus HTN (hypertension) Social History Smoking and tobacco status: former smoker Physical Exam Const: COMMON NORMALS: no acute distress, patient oriented x3 and healthy appearing HENMT: COMMON NORMALS: normocephalic and atraumatic HEAD & SCALP: normocephalic and atraumatic Eye: COMMON NORMALS: Equal, round and reactive pupils present and EOMs intact bilaterally PUPIL: Yes Equal, round and reactive pupils present Neck/C-Spine: COMMON NORMALS: full ROM and supple Chest: COMMONS NORMALS: normal inspection of the chest and normal palpation of entire chest wall Resp: COMMON NORMALS: normal respiratory effort, No retractions and No use of accessory muscles AUSCULTATION: rales Cardio: COMMON NORMALS: regular rate, regular rhythm and No murmurs present (Cardio) RATE: regular rate RHYTHM: regular rhythm GI: COMMON NORMALS: Normal to inspection, nondistended, normoactive bowel sounds present, Soft to palpation, non-tender and no masses PALPATION: Yes Soft to palpation Extremity: COMMON NORMALS: full ROM GENERAL: Yes edema Neuro: COMMON NORMALS: patient oriented x3, moves all extremities and no focal motor deficits Psych: COMMON NORMALS: mental status grossly normal, Normal thought process present and cooperative THOUGHT PROCESS: Normal thought process present Skin: COMMON NORMALS: no rashes or lesions noted and no wounds GENERAL SKIN EXAM: no rashes or lesions noted Course Vital Signs: Vital signs: Vital Signs Temperature 99 F 11/25/21 20:09 Pulse Rate 76 11/25/21 21:45 Respiratory Rate 16 11/25/21 21:45 Blood Pressure 121/58 11/25/21 21:45 Pulse Oximetry 93 11/25/21 21:45 MDM - SOB/Dyspnea Medical Decision Making Patient presents with a slight cough x-ray shows possible pneumonia his white count here is normal he is not having any hypoxia patient states he would like to go home did give him a dose of IV Lasix here for his heart failure we will prescribe him doxycycline he is to follow-up his PCP and return if worsening he understands agrees to plan. Lab Data : 11/25/21 21:40 11/25/21 21:40 Labs/Radiology: Radiology Impressions Chest X-Ray 11/25/21 20:00 IMPRESSION: 1. Trace right pleural effusion. 2. Bibasilar airspace infiltrates. Laboratory Results WBC 5.1 10^3/uL (4.0-10.0) 11/25/21 21:40 RBC 3.23 10^6/uL (4.1-5.3) L 11/25/21 21:40 Hgb 8.9 g/dL (11.7-16.6) L 11/25/21 21:40 Hct 27.8 % (42.0-52.0) L 11/25/21 21:40 MCV 86.1 fl (80-94) 11/25/21 21:40 MCH 27.6 pg (28.0-34.0) L 11/25/21 21:40 MCHC 32.0 g/dL (30.0-36.0) 11/25/21 21:40 RDW 15.6 % (12.1-15.1) H 11/25/21 21:40 Plt Count 205 10^3/cmm (130-400) 11/25/21 21:40 MPV 11.0 fL (7.4-10.4) H 11/25/21 21:40 Neut % (Auto) 79.4 % 11/25/21 21:40 Lymph % (Auto) 10.7 % 11/25/21 21:40 [place] % (Auto) 8.7 % 11/25/21 21:40 Eos % (Auto) 0.4 % 11/25/21 21:40 Baso % (Auto) 0.4 % 11/25/21 21:40 Neut # (Auto) 4.02 10^3/uL (1.8-7.7) 11/25/21 21:40 Lymph # (Auto) 0.5 10^3/uL (0.8-4.8) L 11/25/21 21:40 [place] # (Auto) 0.4 10^3/uL (0.2-0.9) 11/25/21 21:40 Eos # (Auto) 0.0 10^3/uL (0.0-0.8) 11/25/21 21:40 Baso # (Auto) 0.0 10^3/uL (0.0-0.1) 11/25/21 21:40 Nucleated RBC % (auto) 0 % 11/25/21 21:40 Nucleated RBCs # 0.0 /100WBC 11/25/21 21:40 Sodium 134 mmol/L (136-145) L 11/25/21 21:40 Potassium 4.6 mmol/L (3.5-5.1) 11/25/21 21:40 Chloride 99 mmol/L (98-107) 11/25/21 21:40 Carbon Dioxide 23 mmol/L (22-29) 11/25/21 21:40 Anion Gap 16.6 (5-19) 11/25/21 21:40 BUN 52 mg/dL (8-23) H 11/25/21 21:40 Creatinine 1.7 mg/dL (0.7-1.2) H 11/25/21 21:40 GFR Calculation Not Reportable 11/25/21 21:40 Glucose 159 mg/dL (65-115) H 11/25/21 21:40 Calculated Osmolality 295 mOsm/kg (285-295) 11/25/21 21:40 Lactic Acid 0.8 mmol/L (0.5-2.2) 11/25/21 21:40 Calcium 8.3 mg/dL (8.5-10.5) L 11/25/21 21:40 Total Bilirubin 0.5 mg/dL (0.15-1.2) 11/25/21 21:40 AST 19 U/L (0-40) 11/25/21 21:40 ALT 17 U/L (0-41) 11/25/21 21:40 Alkaline Phosphatase 89 IU/L (40-130) 11/25/21 21:40 Troponin T Baseline 44 ng/L (0-15) H 11/25/21 21:40 Troponin T 120 Minute 45.58 ng/L (0-15) H 11/25/21 12:40 Delta Troponin T 1.58 ABS# (0-10) 11/25/21 12:40 NT-Pro-B Natriuret Pep 4650 pg/mL (0-450) H 11/25/21 21:40 Total Protein 6.6 g/dL (6.6-8.7) 11/25/21 21:40 Albumin 3.3 g/dL (3.5-5.2) L 11/25/21 21:40 Globulin 3.3 g/dL (1.3-4.6) 11/25/21 21:40 SARS-CoV-2 Ag (Rapid) Negative (Negative) 11/25/21 21:57 EKG Data EKG 1: I personally reviewed and interpreted this EKG as follows: EKG Interpretation Date: 11/25/21 EKG interpretation time: 21:54 Interpretation: nsr hr [address] or t wave abnormalities qrs 113 qtc 436 Discharge Plan Discharge Patient Disposition: Home Clinical Impression: Community acquired pneumonia, Congestive heart failure Condition: Stable Prescriptions: No Action potassium chloride 20 mEq tablet extended release 20 meq PO DAILY 0RF metformin 850 mg tablet 850 mg PO DAILY 0RF trazodone 100 mg tablet 100 mg PO DAILY 0RF citalopram 20 mg tablet 20 mg PO DAILY 0RF hydrocodone-acetaminophen 5-325 mg tablet 1 tab PO BID PRN0RF furosemide 20 mg tablet 20 mg PO QAM 0RF Discharge Orders: Discharge ED (Routine); Ordered 11/26/21 Ordered By: Croby Allen Referrals: Nori Nam MD [Primary Care Provider] - 1-3 days Discharge Diet: Advance as tolerated Discharge Activity: Resume usual activity Patient Instructions: Heart Failure (ED), Bacterial Pneumonia (ED) Coding Level of Care Code ED Telephone Installer for Chg Fwd Exam Comprehensive
[2021-11-25 21:45] VITALS: BP 121/58; PULSE 76; RESP 16; O2SAT 93
[2021-11-25 21:47] LABS: Basophils % 0.4 %; Eosinophils % 0.4 %; Hematocrit 27.8 % (42.0-52.0); Hemoglobin 8.9 g/dL (11.7-16.6); Lymphocytes # 0.5 10^3/uL (0.8-4.8); Lymphocytes % 10.7 %; Mean Corpuscular Hemoglobin 27.6 pg (28.0-34.0); Mean Corpuscular Volume 86.1 fl (80-94); Monocytes # 0.4 10^3/uL (0.2-0.9); Monocytes % 8.7 %; Neutrophils # 4.02 10^3/uL (1.8-7.7); Neutrophils % 79.4 %; Nucleated Red Blood Cells % 0 %; Platelet Count 205 10^3/cmm (130-400); Red Blood Count 3.23 10^6/uL (4.1-5.3); Red Cell Distribution Width 15.6 % (12.1-15.1); White Blood Count 5.1 10^3/uL (4.0-10.0)
[2021-11-25 22:04] LABS: Alanine Aminotransferase 17 U/L (0-41); Alkaline Phosphatase 89 IU/L (40-130); Carbon Dioxide 23 mmol/L (22-29); Globulin 3.3 g/dL (1.3-4.6); Potassium 4.6 mmol/L (3.5-5.1); Total Bilirubin 0.5 mg/dL (0.15-1.2)
[2021-11-25 22:05] LABS: Lactic Sepsis W/Reflex 0.8 mmol/L (0.5-2.2)
[2021-11-25 22:06] LABS: Troponin(5th) Baseline 44 ng/L (0-15)
[2021-11-25 22:14] LABS: Albumin Level 3.3 g/dL (3.5-5.2); Anion Gap 16.6 (5-19); Aspartate Amino Transferase 19 U/L (0-40); Blood Urea Nitrogen 52 mg/dL (8-23); Calcium 8.3 mg/dL (8.5-10.5); Chloride 99 mmol/L (98-107); Glucose 159 mg/dL (65-115); Osmolality Calculated 295 mOsm/kg (285-295); Sodium 134 mmol/L (136-145); Total Protein 6.6 g/dL (6.6-8.7)
[2021-11-25 22:22] LABS: NT Pro B Type Natriuretic Pept 4650 pg/mL (0-450)
[2021-11-25 22:30] LABS: SARS Covid-2 Antigen Negative (Negative)
[2021-11-26] VITALS: BP 141/68; PULSE 79; RESP 17; O2SAT 94
[2021-11-26 00:30] VITALS: BP 205/75; PULSE 98; RESP 15; O2SAT 94
[2021-11-26] MEDS: FUROsemide 10 mg/mL SDV 10mL 60 MG IVP (00:55)
[2021-11-26 01:00] VITALS: BP 146/54; PULSE 85; RESP 16; O2SAT 96
[2021-11-26 01:08] LABS: Troponin 5 2HR 45.58 ng/L (0-15)
[2021-11-26 01:15] VITALS: BP 131/45; PULSE 87; RESP 16; O2SAT 92
[2021-11-26 01:19] LABS: Troponin 5 2HR Delta 1.58 ABS# (0-10)
[2021-11-26 01:30] VITALS: BP 147/54; PULSE 89; RESP 17; O2SAT 92
[2021-11-26] MEDS: doxycycline 100 mg Tablet PO (01:41)
[2021-11-26 01:58] VITALS: BP 168/62; PULSE 92; RESP 16; O2SAT 93
== END 2021-11-26 02:01 | disposition home or self-care (01) ==
PROVIDERS: Emergency Provider Emergency Medicine; PCP Family Medicine
DX: J18.9 Pneumonia, unspecified organism (principal); I50.9 Heart failure, unspecified; E11.9 Type 2 diabetes mellitus without complications; I10 Essential (primary) hypertension
CPT/HCPCS: 71045; 80053; 83605; 83880; 84484; 85025; 87426; 93005; 96374; 99285; J1940

== ENCOUNTER 2021-12-24 21:46 | Inpatient (IN) | payer OTHER, MEDICARE, SELFPAY ==
[2021-12-24] VITALS (25 sets, daily range): BP systolic 78–148; BP diastolic 31–99; PULSE 51–111; RESP 20–102; TEMP 36.1; O2SAT 86–100; BMI 33.0
--- NOTE | 2021-12-24 21:50 | PC.NURSE ---
dr vann notified that patient presents with painful distress, o2 saturation varying from 89-93%, difficult to obtain NIBP, and when resulted pt bp 80/50s. no new orders.
--- NOTE | 2021-12-24 21:51 | ED_ITS ---
HPI - Chest Pain General: Chief Complaint: Chest Pain Stated Complaint: CP Time Seen by Provider: 12/24/21 21:49 History of Present Illness: Mr. Hartman is a 76-year-old gentleman with history of CHF, hypertension, diabetes, obesity presenting to the emergency department due to chest and abdominal pain. Onset of symptoms was approximately 2 hours prior to arrival at rest. He endorses severe abdominal epigastric burning associated with chest heaviness. Denies recent infectious symptoms or changes in bowel movements, no vomiting. He was noted to be hypotensive. He was given 250 mill bolus by EMS and ASA 324 mg. Overall course of symptoms has persisted. Intensity is moderate to severe. No other specific changes in health, exacerbating, or alleviating factors identified. 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 He was in the hospital approximately 1 week ago for somewhat similar clinical presentation. He appeared somewhat ill earlier today however decompensation was somewhat acute just when he was taking his nighttime meds. Onset (ago): hour(s) Timing of current episode: constant Onset: during rest Pain location: substernal and epigastric Pain radiation: abdomen Severity: severe Quality: burning Relieving factors: nothing Exacerbating factors: palpation and movement Review of Systems General: Reports: 10 or more systems reviewed and unremarkable except in HPI and below PFSH ED PFSH: Medical History Abscess of vertebra CHF (congestive heart failure), NYHA class III Diabetes mellitus Discitis of thoracolumbar region HTN (hypertension) Staphylococcus aureus bacteremia Surgical History No significant past surgical history Social History Smoking and tobacco status: former smoker Physical Exam Const: COMMON NORMALS: alert GENERAL APPEARANCE: cooperative, well developed, in distress (Uncomfortable due to pain) and ill appearing (Moderately) HENMT: COMMON NORMALS: normocephalic and atraumatic HEAD & SCALP: normocephalic and atraumatic Eye: COMMON NORMALS: conjunctivae normal CONJUNCTIVA: Yes conjunctivae normal SCLERA: sclerae normal Neck/C-Spine: COMMON NORMALS: supple GENERAL: Yes trachea midline Resp: EFFORT & INSPECTION: Yes able to speak in complete sentences and Yes tachypneic AUSCULTATION: diminished lung sounds Cardio: COMMON NORMALS: regular rate and regular rhythm RATE: regular rate RHYTHM: regular rhythm GI: COMMON NORMALS: Soft to palpation PALPATION: Yes Soft to palpation, Yes Tenderness to palpation present (GI), No Guarding due to palpation present (GI) and No Rigid due to palpation PERCUSSION: normal to percussion Extremity: GENERAL: Yes normal exam except as noted and No edema Neuro: COMMON NORMALS: moves all extremities SENSORIUM/ORIENTATION: Yes alert and No Orientation impaired Psych: COMMON NORMALS: mental status grossly normal and Normal thought process present THOUGHT PROCESS: Normal thought process present Course ED course: - Patient was seen and evaluated by me at bedside - Patient placed on cardiac monitors, IV access obtained - Initial evaluation notable for ill appearance, hypotension with respiratory distress - Labs and xrays personally interpreted by me. EKG with AV paced rhythm. -Fluid bolus given, analgesia given - Labs notable for leukocytosis, normocytic anemia. Metabolic panel with JOCELYN and evidence of metabolic derangement with electrolyte arrangement. BNP elevated. ABG with metabolic acidosis and hypoxemia - Imaging notable for interstitial edema, no pneumothorax. Pulmonary edema with small bilateral pleural effusions. Possible discitis/osteomyelitis but no abdominal pathology to explain symptoms. -See supplemental information in HPI regarding distractive lesion - Upon serial reexamination after treatment the patient was only minimally improved with fluids with resting blood pressure. Challenging clinical picture, patient here to be in shock with possible septic shock in addition to this. Antibiotics and ketamine given. - Based on patient history, evaluation, and testing as interpreted the most likely cause of the patient's condition is multifactorial with decompensated heart failure, osteomyelitis, JOCELYN, shock - The results of ED evaluation were discussed with the patient including plan for admission due to requirement for level of care not available if discharged to prevent significant worsening/deterioration. - Admitting service was contacted and Dr Vidal with the hospitalist service agreed to admit the patient - Patient was admitted without further deterioration or significant events. Note: Click bubbles or prepopulated marie in note writing are used for assistance with data collection and billing and are inherently more limited than narrative and other text portions of this note. Please use narrative for additional clinical history and defer to narrative/free test for any case of contradictory information. If information appears in only free text or click bubble it should be considered present or absent as reported. Please contact note marketing copywriter for clarifications of clinical information or contradictory information. MDM is a brief summary, contradictory or erroneous seeming information should be clarified and full note should be reviewed. Vital Signs: Vital signs: Vital Signs Temperature 97.0 F L 12/24/21 21:48 Pulse Rate 60 12/26/21 12:00 Respiratory Rate 12 12/26/21 09:48 Blood Pressure 96/60 12/26/21 12:00 Pulse Oximetry 89 L 12/26/21 12:00 Oxygen Delivery Me thod 12/25/21 04:08 Oxygen Flow Rate 3 12/25/21 02:16 Fraction of Inspir ed Oxygen 50 12/25/21 20:00 MDM - Chest Pain Medical Decision Making 76-year-old gentleman presenting initially with unclear history with respiratory symptoms and hypotension. Patient found to have multifactorial shock and initiated on dobutamine. Admitted for further management in critical condition. Medical Records I reviewed the patient's medical records. Lab Data I reviewed the patient's lab results. : 12/25/21 05:03 12/25/21 12:29 Radiology Impressions Chest/Abdomen/Pelvis CT 12/24/21 22:20 IMPRESSION: 1. Pulmonary edema. 2. Small bilateral pleural effusions. 3. Destructive endplate changes at T6-7. Possible discitis and osteomyelitis. 4. Incidental findings above. IMPRESSION: 1. No acute findings. 2. Incidental findings above. ADDENDUM: 12/24/21 0151 THIS REPORT CONTAINS FINDINGS THAT MAY BE CRITICAL TO PATIENT CARE. The findings were verbally communicated via telephone conference with Yunior Casas at 11:10 PM CDT on 12/24/2021. The findings were acknowledged and understood. Chest X-Ray 12/25/21 07:03 IMPRESSION: 1. An endotracheal tube is present, terminating above the fatmata by 4.5 cm. 2. Enteric tube seen entering the stomach with tip not visualized. 3. Cardiomegaly with pulmonary vascular congestion. 4. Bilateral pulmonary opacities are again noted and have shown interval worsening from the prior exam. 5. There is blunting of the right costophrenic angle, likely indicating a small pleural effusion. Renal Ultrasound 12/25/21 07:44 IMPRESSION: Normal renal ultrasound. Laboratory Results WBC 13.7 10^3/uL (4.0-10.0) H 12/24/21 22:00 RBC 3.68 10^6/uL (4.1-5.3) L 12/24/21 22:00 Hgb 9.7 g/dL (11.7-16.6) L 12/24/21 22:00 Hct 32.5 % (42.0-52.0) L 12/24/21 22:00 MCV 88.3 fl (80-94) 12/24/21 22:00 MCH 26.4 pg (28.0-34.0) L 12/24/21 22:00 MCHC 29.8 g/dL (30.0-36.0) L 12/24/21 22:00 RDW 15.7 % (12.1-15.1) H 12/24/21 22:00 Plt Count 276 10^3/cmm (130-400) 12/24/21 22:00 MPV 11.8 fL (7.4-10.4) H 12/24/21 22:00 Neut % (Auto) 62.4 % 12/24/21 22:00 Lymph % (Auto) 26.2 % 12/24/21 22:00 [place] % (Auto) 9.5 % 12/24/21 22:00 Eos % (Auto) 1.2 % 12/24/21 22:00 Baso % (Auto) 0.3 % 12/24/21 22:00 Neut # (Auto) 8.53 10^3/uL (1.8-7.7) H 12/24/21 22:00 Lymph # (Auto) 3.6 10^3/uL (0.8-4.8) 12/24/21 22:00 [place] # (Auto) 1.3 10^3/uL (0.2-0.9) H 12/24/21 22:00 Eos # (Auto) 0.2 10^3/uL (0.0-0.8) 12/24/21 22:00 Baso # (Auto) 0.0 10^3/uL (0.0-0.1) 12/24/21 22:00 Nucleated RBC % (auto) 0 % 12/24/21 22:00 Nucleated RBCs # 0.0 /100WBC 12/24/21 22:00 ESR 19 mm/hr (0-10) H 12/24/21 22:00 D-Dimer 0.80 ug/mIFEU (0-0.59) H 12/24/21 22:00 Specimen Type Arterial 12/24/21 23:16 Sample Site Radial, right 12/24/21 23:16 ABG pH 7.30 (7.35-7.45) L 12/24/21 23:16 ABG pCO2 34.0 mmHg (35-45) L 12/24/21 23:16 ABG pO2 58.0 mmHg (80.0-100.0) L 12/24/21 23:16 ABG HCO3 16.7 mmol/L (22-26) L 12/24/21 23:16 ABG Base Excess -8.9 mmol/L (-2.0-2.0) L 12/24/21 23:16 Jeremy Test Pos 12/24/21 23:16 Hematocrit 27.7 % (42-52) L 12/24/21 23:16 O2 Delivery Device Bipap 12/24/21 23:16 FiO2 40.0 % 12/24/21 23:16 PEEP 6.0 cmH20 12/24/21 23:16 [facility] ID Hensa 12/24/21 23:16 Sodium 130 mmol/L (136-145) L 12/24/21 22:00 Potassium 5.6 mmol/L (3.5-5.1) H 12/24/21 22:00 Chloride 94 mmol/L (98-107) L 12/24/21 22:00 Carbon Dioxide 21 mmol/L (22-29) L 12/24/21 22:00 Anion Gap 20.6 (5-19) H 12/24/21 22:00 BUN 53 mg/dL (8-23) H 12/24/21 22:00 Creatinine 2.7 mg/dL (0.7-1.2) H 12/24/21 22:00 GFR Calculation Not Reportable 12/24/21 22:00 Glucose 181 mg/dL (65-115) H 12/24/21 22:00 Calculated Osmolality 289 mOsm/kg (285-295) 12/24/21 22:00 Lactate 3.5 mmol/L (0.5-2.2) H 12/24/21 22:00 Calcium 8.6 mg/dL (8.5-10.5) 12/24/21 22:00 Phosphorus 5.0 mg/dL (2.5-4.5) H 12/25/21 00:07 Magnesium 2.0 mg/dL (1.7-2.3) 12/25/21 00:07 Total Bilirubin 0.4 mg/dL (0.15-1.2) 12/24/21 22:00 AST 23 U/L (0-40) 12/24/21 22:00 ALT 17 U/L (0-41) 12/24/21 22:00 Alkaline Phosphatase 101 IU/L (40-130) 12/24/21 22:00 Troponin T Baseline 95 ng/L (0-15) H 12/24/21 22:00 Troponin T 120 Minute 107.5 ng/L (0-15) H 12/25/21 00:07 Delta Troponin T 12.5 ABS# (0-10) H* 12/25/21 00:07 NT-Pro-B Natriuret Pep 7056 pg/mL (0-450) H 12/24/21 22:00 Total Protein 6.0 g/dL (6.6-8.7) L 12/24/21 22:00 Albumin 3.3 g/dL (3.5-5.2) L 12/24/21 22:00 Globulin 2.7 g/dL (1.3-4.6) 12/24/21 22:00 Lipase 32 U/L (13-60) 12/24/21 22:00 Procalcitonin 0.14 ng/mL (0-0.5) 12/25/21 00:07 Urine Color Yellow (Yellow) 12/25/21 00:07 Urine Appearance Clear (CLEAR) 12/25/21 00:07 Urine pH 5 (5-7) 12/25/21 00:07 Ur Specific [place] 1.010 (1.005-1.030) 12/25/21 00:07 Urine Protein Trace (Negative) 12/25/21 00:07 Urine Glucose (UA) Norm (Normal) 12/25/21 00:07 Urine Ketones Negative (Negative) 12/25/21 00:07 Urine Blood Neg (Negative) 12/25/21 00:07 Urine Nitrate Negative (Negative) 12/25/21 00:07 Urine Bilirubin Neg (Negative) 12/25/21 00:07 Urine Urobilinogen Norm mg/dL (Negative) 12/25/21 00:07 Ur Leukocyte Esterase Negative (Negative) 12/25/21 00:07 Urine RBC 0-4 /hpf (0-2) H 12/25/21 00:07 Urine WBC 0-4 /hpf (0-5) H 12/25/21 00:07 Ur Squamous Epith Cells 0-4 /hpf (0-5) H 12/25/21 00:07 Amorphous Sediment Not Reportable 12/25/21 00:07 Urine Bacteria Trace /hpf (NONE) 12/25/21 00:07 Hyaline Casts 0-4 /lpf H 12/25/21 00:07 Urine Mucus 1+ /hpf 12/25/21 00:07 U Random Total Protein 18 mg/dL 12/25/21 00:07 Ur Random Sodium 15 mmol/L 12/25/21 00:07 Ur Random Sodium 15 mmol/L 12/25/21 00:07 Ur Random Potassium 42 mmol/L 12/25/21 00:07 Ur Random Chloride 10 mmol/L 12/25/21 00:07 Urine Creatinine 123 mg/dL (39-259) 12/25/21 00:07 Nasal Influ A H1 2008 PCR Not detected (NOT DETECT) 12/25/21 00:28 Urine Opiates Screen Positive ng/mL (Negative) H 12/25/21 00:07 Ur Barbiturates Screen Negative ng/mL (Negative) 12/25/21 00:07 Ur Phencyclidine Scrn Negative ng/mL (Negative) 12/25/21 00:07 Ur Amphetamines Screen Negative ng/mL (Negative) 12/25/21 00:07 U Benzodiazepines Scrn Negative ng/mL (Negative) 12/25/21 00:07 Urine Cocaine Screen Negative ng/mL (Negative) 12/25/21 00:07 U Marijuana (THC) Screen Negative ng/mL (Negative) 12/25/21 00:07 Adenovirus (PCR) Not detected (NOT DETECT) 12/25/21 00:28 C. pneumoniae DNA (PCR) Not detected (NOT DETECT) 12/25/21 00:28 Coronavirus 229E (PCR) Not detected (NOT DETECT) 12/25/21 00:28 Human Metapneumovir PCR Not detected (NOT DETECT) 12/25/21 00:28 Influenza A (H1) PCR Not detected (NOT DETECT) 12/25/21 00:28 Influenza A (H3) PCR Not detected (NOT DETECT) 12/25/21 00:28 Influenza Type A (PCR) Not detected (NOT DETECT) 12/25/21 00:28 Influenza Type B (PCR) Not detected (NOT DETECT) 12/25/21 00:28 M. pneumoniae (PCR) Not detected (NOT DETECT) 12/25/21 00:28 Parainfluenza 1 (PCR) Not detected (NOT DETECT) 12/25/21 00:28 Parainfluenza 2 (PCR) Not detected (NOT DETECT) 12/25/21 00:28 Parainfluenza 3 (PCR) Not detected (NOT DETECT) 12/25/21 00: Parainfluenza 4 (PCR) Not detected (NOT DETECT) 12/25/21 00:28 RSV Type A (PCR) Not detected (NOT DETECT) 12/25/21 00:28 RSV Type B (PCR) Not detected (NOT DETECT) 12/25/21 00:28 Entero/Rhino (PCR) Not detected (NOT DETECT) 12/25/21 00:28 SARS-CoV-2 (PCR) Not detected (NOT DETECT) 12/25/21 00:28 Critical Care Time Critical Care Time: Critical Care Time: Yes Total Critical Care Time: 110 Attestation: The high probability of a clinically significant, sudden or life threatening deterioration of the patient's cardiopulmonary system(s) required my full and direct attention, intervention and personal management. The critical care time is as shown. This time is in addition to time spent performing any reported procedures but includes the following: [x] Data and vital sign review and interpretation [x] Patient assessment, examination and intervention [x] Documentation [x] Medication orders and management Discharge Plan Discharge Patient Disposition: Admitted As Inpatient Admit Provider: Manohar Vidal Clinical Impression: Cardiogenic shock, Acute decompensated heart failure, Leukocytosis, Normocytic anemia, Acidosis, lactic, JOCELYN (acute kidney injury), Pleural effusion due to CHF (congestive heart failure), Pulmonary edema, Acute respiratory failure with hypoxia Condition: Critical Coding Level of Care Code ED Deputy Sheriff K9 Handler for Chg Fwd Exam Comprehensive
--- NOTE | 2021-12-24 21:55 | PC.NURSE ---
dr vann notified that patient restlessness is worsening, pallor is pale, skin cool and profusely diaphoretic, purple discoloration noted to right upper chest, vitals signs worsening and patient deteriorating. no new orders.
--- NOTE | 2021-12-24 21:59 | PC.NURSE ---
supercharge repair supervisor torres notified of patient deterioration and worsening vitals signs, supercharge repair supervisor notified dr vann who brought ultrasound to bedside for fast exam. crash cart brought to bedside, patient placed on stat pads.
--- NOTE | 2021-12-24 22:01 | XRR_ITS ---
PROCEDURE INFORMATION: Exam: XR Chest Exam date and time: 12/24/2021 10:09 PM Age: 76 years old Clinical indication: Shortness of breath; Additional info: Hypotension TECHNIQUE: Imaging protocol: Radiologic exam of the chest. Views: 1 view. COMPARISON: CR (CHEST, ) 11/25/2021 9:14 PM FINDINGS: Tubes, catheters and devices: There is a dual-lead AICD with leads positioned in the right atrium and right ventricle. Lungs: Indistinct central interstitial markings. Ground-glass opacity in the lower lungs bilaterally. No focal consolidation. Pleural spaces: The right lateral costophrenic sulcus is blunted. The left lateral costophrenic sulcus is blunted. Heart/Mediastinum: There is mild enlargement of the cardiac silhouette. Bones/joints: Moderate degenerative disease at the right shoulder. XR/XR chest 1V portable [id number] IMPRESSION: 1. Probable interstitial edema and small bilateral pleural effusions. 2. Cardiac enlargement.
--- NOTE | 2021-12-24 22:02 | ECG_ITS ---
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 Measurements Intervals [place] Rate: 60 P: 0 HI: 310 QRS: -66 QRSD: 157 T: 87 QT: 446 QTc: 446 Interpretive Statements ELECTRONIC ATRIAL PACEMAKER ELECTRONIC VENTRICULAR PACEMAKER Compared to ECG 11/25/2021 21:54:20 Sinus rhythm no longer present Incomplete right bundle-branch block no longer present Electronically Signed On 12-24-2021 23:32:57 CDT by Dawson Verma M.D. [email or web address]/store/[id number] f
[2021-12-24 22:08] LABS: Basophils % 0.3 %; Eosinophils # 0.2 10^3/uL (0.0-0.8); Eosinophils % 1.2 %; Hematocrit 32.5 % (42.0-52.0); Hemoglobin 9.7 g/dL (11.7-16.6); Lymphocytes # 3.6 10^3/uL (0.8-4.8); Lymphocytes % 26.2 %; Mean Corpuscular HGB Conc 29.8 g/dL (30.0-36.0); Mean Corpuscular Hemoglobin 26.4 pg (28.0-34.0); Mean Corpuscular Volume 88.3 fl (80-94); Mean Platelet Volume 11.8 fL (7.4-10.4); Monocytes # 1.3 10^3/uL (0.2-0.9); Monocytes % 9.5 %; Neutrophils # 8.53 10^3/uL (1.8-7.7); Neutrophils % 62.4 %; Nucleated Red Blood Cells % 0 %; Platelet Count 276 10^3/cmm (130-400); Red Blood Count 3.68 10^6/uL (4.1-5.3); Red Cell Distribution Width 15.7 % (12.1-15.1); White Blood Count 13.7 10^3/uL (4.0-10.0)
[2021-12-24] MEDS: sodium chloride 0.9% 1,000 ML 999 ML IV (22:20)
--- NOTE | 2021-12-24 22:20 | CTR_ITS ---
PROCEDURE INFORMATION: Exam: CT Chest With Contrast; Diagnostic Exam date and time: 12/24/2021 10:40 PM Age: 76 years old Clinical indication: Abdominal pain; Acute; Radiating; Additional info: Chest and diffuse abdominal pain, hypotension TECHNIQUE: Imaging protocol: Diagnostic computed tomography of the chest with contrast. Radiation optimization: All CT scans at this facility use at least one of these dose optimization techniques: automated exposure control; mA and/or kV adjustment per patient size (includes targeted exams where dose is matched to clinical indication); or iterative reconstruction. Contrast material: OMNIPAQUE 350; Contrast volume: 95 ml; Contrast route: INTRAVENOUS (IV); COMPARISON: CR XR chest 1V portable [id number] 12/24/2021 10:09 PM RADIATION DOSE METRICS: Total DLP (mGy-cm): 1622.98 FINDINGS: Tubes, catheters and devices: There is a dual-lead AICD with leads positioned in the right atrium and right ventricle. Lungs: Diffuse interlobular septal thickening and central bronchial wall thickening with bilateral lower lung predominant ground-glass opacities. There is no focal consolidation. Pleural spaces: Small bilateral pleural effusions. Heart: There is mild cardiac enlargement. There is moderate coronary artery calcification. There is no pericardial effusion. Lymph nodes: There is no mediastinal or hilar lymphadenopathy. Vasculature: There is moderate aortic atherosclerotic disease. The central pulmonary arteries are unremarkable. Bones/joints: There are destructive changes at the T6 inferior and T7 superior endplates. There is anterior paraspinous edema at T6-7. See axial series 3 image 31 through 35. No acute fracture. Chronic mild compression fractures at T11 and T12 are stable since 06/11/2021. Soft tissues: Bilateral gynecomastia. PROCEDURE INFORMATION: Exam: CT Abdomen And Pelvis With Contrast Exam date and time: 12/24/2021 10:40 PM Age: 76 years old Clinical indication: Abdominal pain; Acute; Radiating; Additional info: Chest and diffuse abdominal pain, hypotension TECHNIQUE: Imaging protocol: Computed tomography of the abdomen and pelvis with contrast. Radiation optimization: All CT scans at this facility use at least one of these dose optimization techniques: automated exposure control; mA and/or kV adjustment per patient size (includes targeted exams where dose is matched to clinical indication); or iterative reconstruction. Contrast material: OMNIPAQUE 350; Contrast volume: 95 ml; Contrast route: INTRAVENOUS (IV); COMPARISON: CT abdomen pelvis w con* [id number] 06/11/2021 3:24 PM RADIATION DOSE METRICS: Total DLP (mGy-cm): 1622.98 FINDINGS: Liver: The liver is normal. Gallbladder and bile ducts: The gallbladder is normal. There is no biliary dilation. Pancreas: There is mild atrophy of the pancreas. Spleen: The spleen is unremarkable. Adrenal glands: The adrenal glands are unremarkable. Kidneys and ureters: There is mild atrophy of both kidneys. There is no hydronephrosis or stones. Stomach and bowel: The stomach is unremarkable. The small bowel is nondilated. The colon is unremarkable. Appendix: The appendix is normal. Intraperitoneal space: There is no free air or significant intraperitoneal free fluid. Vasculature: There is severe aortic atherosclerotic disease. Lymph nodes: There is no lymphadenopathy in the retroperitoneum, mesentery, pelvis or inguinal regions. Urinary bladder: The urinary bladder is unremarkable. Reproductive: The prostate and seminal vesicles are unremarkable. Bones/joints: There is moderate degenerative disease in the lumbar spine. There is mild degenerative disease of both hips. The pelvis and hips are unremarkable. Soft tissues: The abdominal wall is intact. CT/CT chest abd pel w con* IMPRESSION: 1. Pulmonary edema. 2. Small bilateral pleural effusions. 3. Destructive endplate changes at T6-7. Possible discitis and osteomyelitis. 4. Incidental findings above. IMPRESSION: 1. No acute findings. 2. Incidental findings above.
[2021-12-24 22:30] LABS: Lactate (Lactic Acid level) 3.5 mmol/L (0.5-2.2)
[2021-12-24 22:35] LABS: Troponin(5th) Baseline 95 ng/L (0-15)
[2021-12-24] MEDS: iohexol 350 mg/mL 100 mL Btl IV (22:41)
--- NOTE | 2021-12-24 22:43 | PC.NURSE ---
patient taken to ct with stat pads, portable monitoring, acls RN x 2.
[2021-12-24 22:44] LABS: Alanine Aminotransferase 17 U/L (0-41); Albumin Level 3.3 g/dL (3.5-5.2); Alkaline Phosphatase 101 IU/L (40-130); Blood Urea Nitrogen 53 mg/dL (8-23); Calcium 8.6 mg/dL (8.5-10.5); Carbon Dioxide 21 mmol/L (22-29); Chloride 94 mmol/L (98-107); Globulin 2.7 g/dL (1.3-4.6); Glucose 181 mg/dL (65-115); Lipase 32 U/L (13-60); NT Pro B Type Natriuretic Pept 7056 pg/mL (0-450); Osmolality Calculated 289 mOsm/kg (285-295); Sodium 130 mmol/L (136-145); Total Bilirubin 0.4 mg/dL (0.15-1.2)
[2021-12-24 22:45] LABS: Anion Gap 20.6 (5-19); Aspartate Amino Transferase 23 U/L (0-40); Potassium 5.6 mmol/L (3.5-5.1)
--- NOTE | 2021-12-24 23:10 | PC.NURSE ---
RT at bedside to initiate BIPAP, Dr Casas at bedside speaking with patient.
[2021-12-24] MEDS: DOBUTamine drip 500 MG/250 ML PREMIX 8.51 MG IV (23:21)
--- NOTE | 2021-12-24 23:21 | PC.NURSE ---
RT at bedside for ABGs at this time to right radial.
[2021-12-24 23:27] LABS: Arterial Blood Gas Hematocrit 27.7 % (42-52); Base Excess ABG -8.9 mmol/L (-2.0-2.0); Blood Gas Allen Test Pos; Blood Gas Sample Site Radial, right; Blood Gas Sample Type Arterial; HCO3 ABG 16.7 mmol/L (22-26); Oxygen Device BIPAP
[2021-12-24] MEDS: cefepime 2,000 MG in sodium chloride 0.9% (plus) 50 ML 100 MG IV (23:30)
--- NOTE | 2021-12-24 23:50 | PC.NURSE ---
16f stephen cath kit used to insert indwelling cath at this time, tolerated well, per protocol, yellow clear urine returned. ua sent to lab. unable to find stephen cath charges within [facility], charted here per this facility protocol.
[2021-12-25] VITALS (141 sets, daily range): BP systolic 79–162; BP diastolic 37–113; PULSE 60–152; RESP 17–52; O2SAT 49–100
--- NOTE | 2021-12-25 | XRR_ITS ---
PROCEDURE INFORMATION: Exam: XR Chest Exam date and time: 12/25/2021 3:15 AM Age: 76 years old Clinical indication: Other vascular access device placement or adjustment; Central line, tunnelled; Patient HX: Check S/P RT central line placement; Additional info: Check for central line placement TECHNIQUE: Imaging protocol: Radiologic exam of the chest. Views: 1 view. Total images: 503 COMPARISON: CT chest abd pel w con* 12/24/2021 10:40 PM FINDINGS: Tubes, catheters and devices: A right internal jugular central venous catheter is present, with its tip overlying the region of the superior vena cava. Lungs: Pulmonary vascular congestion. Nonspecific bilateral opacities, atelectasis, edema and/or pneumonia. Pleural spaces: Unremarkable. No pleural effusion. No pneumothorax. Heart/Mediastinum: Cardiomegaly. Cardiac pacemaker noted but ventricular lead not visualized due to inferior aspect of the chest clipped from radiograph. Bones/joints: Osseous structures are unchanged from the prior exam. XR/XR chest 1V portable [id number] IMPRESSION: 1. A right internal jugular central venous catheter is present, with its tip overlying the region of the superior vena cava. No pneumothorax. 2. Cardiomegaly with pulmonary vascular congestion. 3. Nonspecific bilateral opacities, atelectasis, edema and/or pneumonia.
--- NOTE | 2021-12-25 00:02 | ECG_ITS ---
[facility] Test Date: 2021-12-24 Pat Name: William Hartman Department: Room: Gender: Male Assistant Scientist: : 1945 Requested By: Yunior Casas Order Number: [id number] Leonid MD: Jewels Orozco M.D. Measurements Intervals [place] Rate: 60 P: 195 TN: 197 QRS: -55 QRSD: 177 T: 88 QT: 494 QTc: 496 Interpretive Statements ELECTRONIC ATRIAL PACEMAKER ELECTRONIC VENTRICULAR PACEMAKER ABNORMAL RHYTHM ECG Compared to ECG 12/24/2021 21:53:01 No significant changes Electronically Signed On 12-26-2021 19:10:16 CDT by Jewels Orozco M.D. [email or web address] ([facility])/store/NU/[id number] f
--- NOTE | 2021-12-25 00:07 | PC.NURSE ---
repeat troponin drawn per protocol and taken to lab at this time.
--- NOTE | 2021-12-25 00:12 | PC.NURSE ---
covid 19 pcr obtained and taken to lab per protocol.
[2021-12-25] MEDS: FUROsemide 10 mg/mL SDV 4mL 40 MG IVP (00:20)
--- NOTE | 2021-12-25 00:20 | PC.NURSE ---
[employer] pacemaker interrogated at this time.
[2021-12-25 00:25] LABS: Add Urine Culture? No; Add Urine Microscopic? YES; Bacteria Urine TRACE /hpf; Bilirubin Urine Neg (Negative); Blood Urine Neg (Negative); Glucose Urine UA Norm (Normal); Hyaline Casts Urine 0-4 /lpf; Ketones Urine Negative (Negative); Leukocyte Esterase Urine Negative (Negative); Mucus Urine 1+ /hpf; Nitrate Urine Negative (Negative); Protein Urine Trace (Negative); RBC Urine 0-4 /hpf (0-2); Squamous Epithelial Cell Urine 0-4 /hpf (0-5); Urine Appearance Clear (CLEAR); Urine Color Yellow (Yellow); Urobilinogen Urine Norm (Negative); WBC Urine 0-4 /hpf (0-5); pH Urine 5 (5-7)
--- NOTE | 2021-12-25 00:55 | PC.NURSE ---
report called to GELY Vásquez in ICU, accepted to ICU 6. Unit requesting 15 minutes to prepare for admission.
--- NOTE | 2021-12-25 00:59 | USCV_ITS ---
William Hartman Age: 76 Gender: M : 1945 Exam Date: 12/25/2021 04:07 Ordering Phys: Manohar Vidal MD Technologist: BLANCA Exam Location: [facility] Indication: sob BP: 124 / 50 HR: 98 Rhythm: Atrial fibrillation Technical Quality: Adequate MEASUREMENTS (Male / Female) Normal Values 2D ECHO LV Diastolic Diameter PLAX 4.2 cm 4.2 - 5.9 / 3.9 - 5.3 cm LV Systolic Diameter PLAX 2.5 cm IVS Diastolic Thickness 1.6 cm 0.6 - 1.0 / 0.6 - 0.9 cm IVS Systolic Thickness 2.1 cm LVPW Diastolic Thickness 1.8 cm 0.6 - 1.0 / 0.6 - 0.9 cm LVPW Systolic Thickness 2.0 cm LVOT Diameter 2.4 cm LV Ejection Fraction 2D Teich 73.0 % LV Ejection Fraction MOD 2C 61.7 % LV Ejection Fraction 2C AL 62.6 % LA Diameter 5.3 cm LA Width 5.3 cm LA Height 6.6 cm RA Width 2.9 cm RA Height 4.7 cm Aorta at Sinotubular Diameter 3.4 cm IVC Diameter 2.3 cm M-MODE Aortic Annulus Diameter 3.6 cm LA Ao Ratio MM 1.4 MV E Point Septal Separation 0.6 cm DOPPLER AV Peak Velocity 326.0 cm/s LVOT Peak Velocity 129.0 cm/s AV Area Cont Eq vti 2.2 cm squared AV Area Cont Eq pk 1.8 cm squared MV Area PHT 3.9 cm squared MV E' Velocity 103.0 cm/s Mitral E to MV E' Ratio 10.6 Mitral E to LV E' Lateral Ratio 11.1 Mitral E to LV E' Septal Ratio 10.2 TR Peak Velocity 347.0 cm/s TR Peak Gradient 48.2 mmHg TV Peak E Velocity 41.0 cm/s Right Atrial Pressure 10.0 mmHg Pulmonary Artery Systolic Pressu 58.2 mmHg PV Peak Velocity 116.0 cm/s RV Acceleration Time 0.1 s RV Ejection Time 0.3 s RV AcT/ET 0.2 FINDINGS Left Ventricle Normal left ventricular size. LV systolic function is normal with EF of 55-60%.No regional wall motion abnormalities. Right Ventricle The right ventricle is normal in size and function. Pacemaker lead is seen. Right Atrium The right atrium is normal in size. Left Atrium The left atrium is severely dilated Mitral Valve Mild mitral annular calcification is seen. Mild mitral regurgitation is seen Aortic Valve Aortic valve is thickened and calcified. At least moderate aortic regurgitation is seen. Tricuspid Valve Grossly normal. Mild tricuspid regurgitation. RVSP is 55 to 60 mmHg. This is consistent with moderate pulmonary hypertension. Pulmonic Valve Not well-visualized Pericardium Normal pericardium without effusion. Aorta Normal ascending aorta dimension. IVC CONCLUSIONS Technically limited quality echocardiogram because of poor ultrasonic windows. LV systolic function is normal with EF 55 to 60%. Left atrium is severely dilated. Mild mitral annular calcification is noted. Mild mitral regurgitation is seen. Aortic valve is thickened and calcified. CW doppler not obtained, aortic stenosis can not be assessed Atleast moderate aortic regurgitation Mild tricuspid regurgitation. This is consistent with moderate pulmonary hypertension No comparison studies are available Dawson Verma MD (Electronically Signed) Final Date: 25 December 2021 13:03 S
[2021-12-25 01:01] LABS: Troponin 5 2HR 107.5 ng/L (0-15); Troponin 5 2HR Delta 12.5 ABS# (0-10)
--- NOTE | 2021-12-25 01:01 | PM.HP ---
Providers/Chief Complaint Admitting Physician: Manohar Vidal MD Primary Care Provider: Nori Nam MD Chief Complaint: CP History of Present Illness William Hartman is a 76 year old male chronic respiratory failure with hypoxia secondary to volume overload, pleural effusion, diastolic CHF, history of paroxysmal atrial fibrillation on Eliquis, history of osteomyelitis of thoracic spine on doxycycline, history of discitis on doxycycline, history of moderate aortic stenosis, history of insulin-dependent type 2 diabetes mellitus, history of CKD stage III recently discharged with a creatinine of 2.42, history of bilateral pleural effusions, CAD status post stenting in July 2021, history of ICD placement, history of heart failure with preserved ejection fraction, who presents to [facility] due to chest pain, shortness of breath and low blood pressures. Patient was recently discharged from [facility] on December 18, for which she was hospitalized for acute respiratory failure with CKD stage III, also concerns for discitis on doxycycline, his was telling me that he was doing well since his discharge, but this evening he started complaining of chest heaviness, shortness of breath, and his blood pressures were low. does tell me that he has been having more of a cough, no significant aspiration episodes. No dysuria complaints. He has been more confused this evening. No history of RAMONE. No calf pain or calf swelling. He has been taking all his medications as prescribed. He had ICD placed for low ejection fraction, but her tells me that on repeat testing his heart function returned back to normal. He also has been taking all his blood thinners as prescribed. Currently patient is on BiPAP 50% FiO2, he is alert, he answers questions, but falls back asleep, patient's tells me has been more confused since this evening. Review of Systems General: Reports: ROS unobtainable due to mental status Medications/Allergies Home Medications Medication Instructions Recorded Confirmed Last Taken Type citalopram 20 mg tablet 20 mg PO DAILY 06/12/21 Unknown History hydrocodone 5 mg-acetaminophen 325 1 tab PO BID PRN 06/12/21 Unknown History mg tablet metformin 850 mg tablet 850 mg PO DAILY 06/12/21 Unknown History potassium chloride 20 mEq 20 meq PO DAILY 06/12/21 Unknown History tablet,extended release trazodone 100 mg tablet 100 mg PO DAILY 06/12/21 Unknown History furosemide 20 mg tablet 20 mg PO QAM 06/14/21 06/14/21 Unknown History Allergies Allergy/AdvReac Type Severity Reaction Status Date / Time acetaminophen [From Fioricet] Allergy Mild Rash Verified 06/12/21 13:43 butalbital [From Fioricet] Allergy Mild Rash Verified 06/12/21 13:43 caffeine [From Fioricet] Allergy Mild Rash Verified 06/12/21 13:43 PFSH Acute PFSH: Medical History CHF (congestive heart failure), NYHA class III Diabetes mellitus HTN (hypertension) Surgical History No significant past surgical history Social History Smoking and tobacco status: former smoker Vitals/I&O/Wt Last Vital Signs Temp 97.0 F L 12/24/21 21:48 Pulse 108 H 12/25/21 00:56 Resp 20 H 12/25/21 00:56 BP 124/50 12/25/21 00:56 Pulse Ox 100 12/25/21 00:56 O2 Del Method 12/25/21 00:56 O2 Flow Rate 4 12/24/21 22:55 FiO2 50 12/25/21 00:30 12/24/21 12/24/21 12/25/21 14:59 22:59 06:59 Intake Total 1013.751 / 1013.751 Balance 1013.751 / 1013.751 Weight last 48 hrs Weight 113.398 kg Physical Exam Const: COMMON NORMALS: no acute distress and patient oriented x3 ORIENTATION/CONSCIOUSNESS: Yes awake and Yes oriented to person; not oriented to place and not oriented to time HENMT: COMMON NORMALS: normocephalic HEAD & SCALP: normocephalic Eye: COMMON NORMALS: Equal, round and reactive pupils present Neck/C-Spine: COMMON NORMALS: no JVD Resp: EFFORT & INSPECTION: Yes abnormal respiratory pattern and Yes tachypneic AUSCULTATION: crackles and wheezes OTHER: Slight intercostal retractions Cardio: COMMON NORMALS: no JVD, regular rate, regular rhythm, S1 normal heart sound present and S2 normal heart sound present RATE: regular rate RHYTHM: regular rhythm HEART SOUNDS: S1 normal heart sound present and S2 normal heart sound present GI: COMMON NORMALS: Normal to inspection, nondistended, normoactive bowel sounds present, Soft to palpation, non-tender, No hepatosplenomegaly present, no masses and no bruits PALPATION: Yes Soft to palpation and Yes No hepatosplenomegaly present Extremity: COMMON NORMALS: capillary refill normal, no clubbing, cyanosis or edema, no calf tenderness and no pedal edema Neuro: OTHER: Follows, etc. squeezing my fingers, alert to person, not to place, not to time Data : 12/24/21 22:00 12/24/21 22:00 Micro: Microbiology 12/25/21 00:38 Blood Culture - Preliminary Blood SPECIMEN COLLECTED A&P Assessment and plan (1) Acute respiratory failure with hypoxia: Status: Acute (2) Pulmonary edema: Status: Acute (3) HTN (hypertension): Status: Acute (4) Diabetes mellitus: Status: Acute (5) Discitis: Status: Acute (6) Shock: Status: Acute (7) Leukocytosis: Status: Acute (8) CAD (coronary artery disease): Status: Acute (9) NSTEMI (non-ST elevated myocardial infarction): Status: Acute (10) Moderate aortic stenosis: Status: Acute (11) Pneumonia: Status: Acute Plan Acute hypoxic respiratory failure -Etiology multifactorial -Likely secondary to pulmonary edema, heart failure with preserved ejection fraction, echocardiogram done at [facility] showed preserved ejection fraction moderate aortic stenosis -CT of the chest diffuse interlobular septal thickening and central bronchial wall thickening with bilateral lower lung predominant ground-glass opacities. -Possible aspiration pneumonia, or healthcare associated pneumonia given his multiple hospitalizations -COVID-19 testing pending -CT angiogram for pulmonary embolism cannot be performed given his creatinine, he is on Eliquis for paroxysmal atrial fibrillation, will do venous ultrasound for DVT, D-dimer, switch to Lovenox Plan -Cardiac echo -Bilateral venous ultrasound, D-dimer -Switch to therapeutic Lovenox -Broad-spectrum antibiotic therapy vancomycin, Primaxin -COVID-19 testing pending -Sputum cultures, blood cultures, urine cultures -Diuretic therapy Bumex 2 mg IV every 8 hours, fluid restrictions 1000 cc, creatinine 2.7, he might require dialysis, for fluid overload, Place Acuna catheter -Continue BiPAP, monitor respiratory status closely -Full code -Lovenox for DVT prophylaxis Non-ST elevation RI -History of CAD status post stenting in the last year -Monitor serial EKGs, serial troponins -Telemetry monitoring -Cardiac echo -Aspirin, statin, Lovenox Shock -Currently on dobutamine, however he is developing wide-complex tachycardia, on low-dose, stop dobutamine switch to Levophed -Likely multifactorial, -Potentially septic shock from pneumonia, cardiogenic -Cardiac echo pending -Work-up as above Discitis, vertebral osteomyelitis, broad-spectrum antibiotic therapy as above Acute encephalopathy, secondary to as above monitor mentation n.p.o. Chronic kidney disease, creatinine on hospitalization at [facility] went as high as 2.4, monitor Type 2 diabetes mellitus, low-dose sliding scale Attestations Medical Necessity Statement*: Patient requires hospitalization, inpatient, greater than 2 midnights, for shock, acute respiratory failure, NSTEMI, discitis, pneumonia Coding Level of Care Code Acute Curator Of Manuscripts for [facility] Geraldd Diagnoses Acute respiratory failure with hypoxia J96.01 Pulmonary edema J81.1 HTN (hypertension) I10 Diabetes mellitus E11.9 Discitis M46.40 Shock R57.9 Leukocytosis D72.829 CAD (coronary artery disease) I25.10 NSTEMI (non-ST elevated myocardial infarction) I21.4 Moderate aortic stenosis I35.0 Pneumonia J18.9
--- NOTE | 2021-12-25 01:10 | USCV_ITS ---
William Hartman Age: 76 Gender: M : 1945 Exam Date: 12/25/2021 02:35 Ordering Phys: Manohar Vidal MD Technologist: BLANCA Exam Location: [facility] Indication: DVT PROCEDURES: Venous duplex imaging was performed in bilateral lower extremities. The venous duplex Doppler examination of both lower extremities was performed in the standard fashion. The following venous structures were evaluated: common femoral vein, profunda vein, proximal portion of the greater saphenous vein, superficial femoral vein, and the popliteal vein. In addition, the posterior tibial veins were evaluated. FINDINGS: Normal 2-D Doppler and augmentation and compressibility throughout the lower extremity venous structures. Additional imaging through the proximal calf veins also reveals no thrombus. Limited evaluation of the greater saphenous vein is patent with no thrombus.. CONCLUSIONS No DVT bilateral lower extremities. Dr. Remedios Salas DO (Electronically Signed) Final Date: 25 December 2021 10:07 S
[2021-12-25 01:28] LABS: Procalcitonin 0.14 ng/mL (0-0.5)
[2021-12-25] MEDS: DOBUTamine drip 500 MG/250 ML PREMIX 17.01 MG IV (01:30)
[2021-12-25 02:17] LABS: Adenovirus Not Detected (NOT DETECT); Chlamydia Pneumoniae Not Detected (NOT DETECT); Coronavirus 229E,HKU1,NL63,OC4 Not Detected (NOT DETECT); Human Metapneumovirus Not Detected (NOT DETECT); Human Rhinovirus/Enterovirus Not Detected (NOT DETECT); Influenza A Not Detected (NOT DETECT); Influenza A H1 Not Detected (NOT DETECT); Influenza A H1-2009 Not Detected (NOT DETECT); Influenza A H3 Not Detected (NOT DETECT); Influenza B Not Detected (NOT DETECT); Mycoplasma Pneumoniae Not Detected (NOT DETECT); Parainfluenza Virus Type 1 Not Detected (NOT DETECT); Parainfluenza Virus Type 2 Not Detected (NOT DETECT); Parainfluenza Virus Type 3 Not Detected (NOT DETECT); Parainfluenza Virus Type 4 Not Detected (NOT DETECT); Respiratory Syncytial Virus A Not Detected (NOT DETECT); Respiratory Syncytial Virus B Not Detected (NOT DETECT); SARS-COV-2 Not Detected (NOT DETECT)
[2021-12-25] MEDS: ondansetron 2 mg/ML SDV 2 mL 8 MG IVP (02:27)
[2021-12-25] MEDS: bumetanide 0.25 mg/mL SDV 10 mL 2 MG IVP (02:27)
--- NOTE | 2021-12-25 02:35 | PC.PHAR ---
Pharmacokinetic dosing service Date: 12/25/21 Time: 234 Objective: Patient: William Hartman Floor: ICU-6 Age: 76 yo Serum creatinine: 2.7 mg/dL Height: 73.0 Inches Weight (kg): 113.398 Diagnosis: Relevant medical/social history: Cultures and sensitivities: Other labs: Assessment: IBW (kg): 79.90 Dosing wt(kg): 113.398 Estimated Creatinine clearance (ml/min): 26.3 CRCL method: Cockcroft and Gault using ibw(default). Drug selected: Vancomycin Loading dose (mg): 0 Vd (liters): 102.1 (factor used: 0.9 L/kg) Onur (hr-1): 0.026 Half life (hrs): 26.66 Recommended dose: 1500 mg Interval: 24 hrs Infusion time (hrs): 1.5 Predicted peak (mcg/mL): 31.0 Predicted trough (mcg/mL): 17.27 Total body weight is being used for vancomycin dosing. Renal function is stable [ ] /unstable [ ] Recommendations: Give Vancomycin 1500 mg q 24 hrs with an expected Cpeak of 31.0 mcg/ml and an expected Ctrough of 17.27 mcg/ml Renal dosing of other antibiotics (review renal dosing of other medications and list guidelines here): Thank you for the consult, will continue to follow. Signature: Ivan[facility]
[2021-12-25] MEDS: enoxaparin 120 mg/0.8 mL Syringe 110 MG SUBCUT (02:41)
[2021-12-25] MEDS: midodrine 5 mg TABLET 10 MG PO (02:41)
[2021-12-25 02:59] LABS: Erythrocyte Sedimentation Rate 19 mm/hr (0-10)
--- NOTE | 2021-12-25 03:19 | P.ANES_ITS ---
Anesthesia Procedures Procedure/Date: 12/25/21 Central Venous Insert: Time Out Performed: Yes Consent: requested by attending/covering physician, risks and benefits reviewed, patient agrees to proceed and other ( windyred, states he has had one before) Central Line: New Anesthesia monitors: pulse oximetry, EKG, BP cuff and oxygen Vein cannulated: right internal jugular Ultrasound used: to identify patency to vessel and to visualize needle entry to vein Post procedure: Obtain Chest X- Ray Additional Comments: -Ultrasound identified right internal jugular vein nonpulsatile, and artery, -Visualize needle entry into right internal jugular vein, nonpulsatile, dawed up dark red blood, nonpulsatile - Ultrasound identified guidewire in right internal jugular -Tolerated procedure well, minimal bleeding -Chest x-ray confirmed position
[2021-12-25] MEDS: pantoprazole 40 mg SDV IVP ×2 (03:33→08:41)
[2021-12-25] MEDS: sodium bicarbonate 8.4% 1 mEq/mL 50mL Syr 50 MEQ IVP (03:34)
--- NOTE | 2021-12-25 04:02 | ECG_ITS ---
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 Measurements Intervals [place] Rate: 72 P: IA: QRS: -51 QRSD: 165 T: 86 QT: 456 QTc: 501 Interpretive Statements Atrial fibrillation with demand ventricular pacing Compared to ECG 12/24/2021 23:15:12 Atrial-paced complex(es) or rhythm no longer present Electronically Signed On 12-27-2021 7:16:02 CDT by Jewels Orozco M.D. [id number]
[2021-12-25 04:10] LABS: ABG PCO2 36.1 mmHg (35-45); ABG PH Result 7.36 (7.35-7.45); Alveolar-Arterial Oxygen Gradi 28.1 mmHg (5-10); Arterial Blood Gas Hematocrit 29.6 % (42-52); Base Excess ABG -4.7 mmol/L (-2.0-2.0); Blood Gas Operator Identificat JB; Blood Gas Sample Site Brachial, right; Blood Gas Sample Type Arterial; Carboxyhemoglobin 1.2 %THgb (0.4-20.1); HCO3 ABG 20.3 mmol/L (22-26); HGB O2 Sat 95.9 % (95-100); Ionized Calcium Level - ABG 1.1 mmol/L (1.1-1.4); Methemoglobin 0.6 % (0.4-1.5); Oxygen Device BIPAP; Oxygen Saturation ABG 97.7; PO2 ABG 95.1 mmHg (80.0-100.0); Potassium Level - ABG 4.7 mmol/L (3.5-5.0); Total Hemoglobin 9.7 g/dL (14-18)
[2021-12-25 05:15] LABS: Basophils % 0.1 %; Hematocrit 31.9 % (42.0-52.0); Hemoglobin 9.7 g/dL (11.7-16.6); Lymphocytes # 0.8 10^3/uL (0.8-4.8); Mean Corpuscular HGB Conc 30.4 g/dL (30.0-36.0); Mean Corpuscular Volume 88.9 fl (80-94); Mean Platelet Volume 11.4 fL (7.4-10.4); Monocytes % 5.3 %; Neutrophils # 17.21 10^3/uL (1.8-7.7); Neutrophils % 90.1 %; Nucleated Red Blood Cells % 0 %; Platelet Count 259 10^3/cmm (130-400); Red Blood Count 3.59 10^6/uL (4.1-5.3); Red Cell Distribution Width 15.8 % (12.1-15.1); White Blood Count 19.1 10^3/uL (4.0-10.0)
[2021-12-25] MEDS: dexmedeTOMIDine 0.9 % NaCL 400 MCG/100 ML PREMIX IV (05:27)
[2021-12-25 05:47] LABS: Alanine Aminotransferase 18 U/L (0-41); Alkaline Phosphatase 98 IU/L (40-130); Anion Gap 22.1 (5-19); Aspartate Amino Transferase 21 U/L (0-40); Blood Urea Nitrogen 56 mg/dL (8-23); C Reactive Protein 48.3 mg/L (0.0-4.9); Calcium 8.2 mg/dL (8.5-10.5); Carbon Dioxide 20 mmol/L (22-29); Chloride 93 mmol/L (98-107); Globulin 2.9 g/dL (1.3-4.6); Glucose 305 mg/dL (65-115); Magnesium 1.8 mg/dL (1.7-2.3); NT Pro B Type Natriuretic Pept 8643 pg/mL (0-450); Osmolality Calculated 297 mOsm/kg (285-295); Potassium 5.1 mmol/L (3.5-5.1); Sodium 130 mmol/L (136-145); Total Bilirubin 0.4 mg/dL (0.15-1.2); Total Protein 5.9 g/dL (6.6-8.7)
[2021-12-25 05:50] LABS: Alcohol Level < 10 mg/dL (0-10); Troponin 5 6HR 172.3 ng/L (0-15); Troponin 5 6HR Delta 77.3 ng/L (0-12)
--- NOTE | 2021-12-25 06:51 | ANES.PROC ---
Anesthesia Procedures Procedure/Date: 12/25/21 Procedure Narrative: Dr. Vidal preformed intubation Intubation: Time Out Performed: Yes Consent: requested by attending/covering physician, from patient, risks and benefits reviewed, patient agrees to proceed and emergency procedure Sedative (amount): etomidate Paralytic (amount): succinylcholine Laryngoscope: fiber optic video scope Assist Device Used: fiber optic device ET Tube Size: 7 ET Tube Uncuffed: Yes Tube Secured Depth (cm): 22 Tube Secured Location: lips Tube Placement Confirmation: visualized tube passing through cords, equal breath sounds bilaterally, confirmation by capnometry and color change noted Patient Tolerated Procedure: well and no complications Intubation Complications: difficult intubation
--- NOTE | 2021-12-25 07:01 | PC.NURSE ---
During report, Francia stated that patient received metoprolol in ED. It was reported that dobutamine was at 10mcg/min, however, at arrival on the floor, patient was at 18mcg/min. Patient presenting rhythm was VT. Titrated dobutamine to 0mcg over 10minutes and uptitrated Levophed by 2mcg/min every 2 minutes following getting to floor. Reaching 20mcg/min. Patient pressures were insufficient, retarted dobutamine at 5mcg/min . Patient began to become more distressed breathing 45-60 times per minute, unable to calm patient, he became diaphoretic and increasingly hypoxic and hypotensive. Dobutamine increased to 10mcg/kg/min. Increased levophed dose to 24mcg/kg/min. Unable to titrate medications in JUL.
--- NOTE | 2021-12-25 07:03 | XRR_ITS ---
PROCEDURE INFORMATION: Exam: XR Chest Exam date and time: 12/25/2021 6:58 AM Age: 76 years old Clinical indication: Device placement; Patient HX: Et and og tube placment; Additional info: Tube placement TECHNIQUE: Imaging protocol: Radiologic exam of the chest. Views: 1 view. Total images: 1 COMPARISON: CR XR chest 1V portable [id number] 12/25/2021 3:15 AM FINDINGS: Tubes, catheters and devices: An endotracheal tube is present, terminating above the fatmata by 4.5 cm. Enteric tube seen entering the stomach with tip not visualized. A right internal jugular central venous catheter is present, with its tip overlying the region of the superior vena cava and unchanged from prior exam. Lungs: Pulmonary vascular congestion. Bilateral pulmonary opacities are again noted and have shown interval worsening from the prior exam. Pleural spaces: There is blunting of the right costophrenic angle, likely indicating a small pleural effusion. Heart/Mediastinum: Cardiomegaly. Bones/joints: Unremarkable. XR/XR chest 1V portable [id number] IMPRESSION: 1. An endotracheal tube is present, terminating above the fatmata by 4.5 cm. 2. Enteric tube seen entering the stomach with tip not visualized. 3. Cardiomegaly with pulmonary vascular congestion. 4. Bilateral pulmonary opacities are again noted and have shown interval worsening from the prior exam. 5. There is blunting of the right costophrenic angle, likely indicating a small pleural effusion.
--- NOTE | 2021-12-25 07:18 | PC.NURSE ---
Called patients to update on intubating patient.
--- NOTE | 2021-12-25 07:23 | P.CONIM_ITS ---
Providers/Reason For Consult Consulting Physician/Specialty*: sahil carpio nd/ telenephrology Reason for Consult*: JOCELYN, hyponatremia Requesting Physician: Dr Manohar Vidal Attending Physician: Manohar Vidal MD Primary Care Provider: Nori Nam MD History of Present Illness History of Present Illness William Hartman is a 76 year old male h/o diastolic CHFpEF, p a fib, moderate , IDDM, CAD s/p staents in July 2021. H/O ICD. Pt has h/o osteomyelitis w/ recent hospitalization at [facility] treated w/ doxycycline and d/c 1 week ago. His Renal fxn was normal in may 2021 w/ a cr of 1. In november 2021 cr started rising- 1.4 mg/dl on 11/19, 1.7 on November 25, 2021. Per pts cr was as high as 2.4 at [facility]. Pt presented yesterday w/ weakness, CP, SOB and cr of 2.7 mg/dl. Overnight pt was on bipap and then intubated for resp distress. he has arrythmias and now on levophed and dobutamine and UOP has bene minimal over last 2 hrs- renal called to consult. CT scan c/w Discitis. Also + trop and dx w/ NSTEMI. repeat echo is pending. Review of Systems Narrative: unable to obtain as sedated and intubated in ICU Medications/Allergies Home Medications Medication Instructions Recorded Confirmed Last Taken Type citalopram 20 mg tablet 20 mg PO DAILY 06/12/21 Unknown History hydrocodone 5 mg-acetaminophen 325 1 tab PO BID PRN 06/12/21 Unknown History mg tablet metformin 850 mg tablet 850 mg PO DAILY 06/12/21 Unknown History potassium chloride 20 mEq 20 meq PO DAILY 06/12/21 Unknown History tablet,extended release trazodone 100 mg tablet 100 mg PO DAILY 06/12/21 Unknown History furosemide 20 mg tablet 20 mg PO QAM 06/14/21 06/14/21 Unknown History Allergies Allergy/AdvReac Type Severity Reaction Status Date / Time acetaminophen [From Fioricet] Allergy Mild Rash Verified 06/12/21 13:43 butalbital [From Fioricet] Allergy Mild Rash Verified 06/12/21 13:43 caffeine [From Fioricet] Allergy Mild Rash Verified 06/12/21 13:43 Current Medications Generic Name Dose Route Start Last Admin Trade Name Stewq PRN Reason Stop Dose Admin Enoxaparin Sodium 110 mg 12/25/21 02:30 12/25/21 02:41 Enoxaparin 120 Mg/0.8 Ml Syringe SUBCUT 110 mg Q24H CAMERON Administration Norepinephrine Bitartrate 4 mg 254 mls @ 0 mls/hr 12/24/21 23:30 12/25/21 06:29 / Dextrose IV 24 mcg/min .Q0M CAMERON 91.44 mls/hr Titration Protocol Per Protocol Dobutamine HCl/Dextrose 500 mg in 250 mls @ 0 mls/hr 12/25/21 02:15 12/25/21 06:15 Dobutamine Drip IV 10 mcg/kg/min .Q0M CAMERON 34.02 mls/hr Titration Protocol Per Protocol dexmedeTOMIDine 0.9 % NaCL 400 mcg in 100 mls @ 0 mls/hr 12/25/21 02:15 06:23 Precedex IV 0 mcg/kg/hr .Q0M CAMERON 0 mls/hr Titration Protocol Per Protocol Imipenem/Cilastatin Sodium 250 100 mls @ 200 mls/hr 12/25/21 03:00 12/25/21 04:39 mg/ Sodium Chloride IV Infused Q6H CAMERON Infusion Midodrine 10 mg 12/25/21 02:10 12/25/21 02:41 Midodrine 5 Mg Tablet PO 10 mg Q8H CAMERON Administration Pantoprazole Sodium 40 mg 12/25/21 02:15 12/25/21 03:33 Pantoprazole 40 Mg Sdv IVP 40 mg Q12H CAMERON Administration PFSH Acute PFSH: Medical History CHF (congestive heart failure), NYHA class III Diabetes mellitus HTN (hypertension) Surgical History No significant past surgical history Social History Smoking and tobacco status: former smoker Vitals/I&O/Wt Last Vital Signs Temp 97.0 F L 12/24/21 21:48 Pulse 63 12/25/21 07:20 Resp 19 H 12/25/21 06:55 BP 138/47 12/25/21 07:20 Pulse Ox 96 12/25/21 07:20 O2 Del Method 12/25/21 04:08 O2 Flow Rate 3 12/25/21 02:16 FiO2 100 12/25/21 06:17 12/24/21 12/25/21 12/25/21 22:59 06:59 14:59 Intake Total 1735.173 / 1735.173 Output Total 1300 / 1300 Balance 435.173 / 435.173 Weight last 48 hrs Weight 115.575 kg Weight 113.398 kg Physical Exam Narrative: intubated zwt5=708%, TV 500, RR 16, PEEP 10 levo @ 24, dobutamine 10 heent- nc/at, eomi lungs crackles heart irreg, JULITA abd soft, nt + stephen ext no edema neuro- sedated Data : 12/25/21 05:03 12/25/21 05:03 Micro: Microbiology 12/25/21 06:20 Blood Culture - Preliminary Blood SPECIMEN COLLECTED 12/25/21 00:38 Blood Culture - Preliminary Blood SPECIMEN COLLECTED A&P Assessment and plan (1) JOCELYN (acute kidney injury): 76 yr old man 1. diskitis- please get full eval from [facility] -renal dose abx -leukocytosis- wbc of 19 2. Subacute renal failure- cr rising over last month- u/a sg 1010, trace protein, no significant hematuria -check renal us. abd ct w/ mild renal atrophy, no hydronephrosis or nephrolithiasis -check c3 , c4- q of infection related GN- yet ua is bland -concern for AIN- bit no eosinophilia and min urine leukocytosis -likely ATN -agree w/ lasix drip -check repeat labs at noon -monitor for HD needs 3. inc AGMA and Resp compensation 4. hyponatremia- check urine lytes- though in jocelyn and given lasix -check cortisol level and tsh 5. DM control per medicine 6. NSTEMI- await echo, cardiology eval seen and examined w/ rN -telehealth visit discussed w/ Dr Ángel Vidal time spent 1 hr Status: Acute Plan see above Consult Attestations Medical Necessity Statement: jocelyn, vdrf, pressor dependent Time Spent in Patient Care: Greater than 35 minutes (>than 50% of time spent in counselling and/or direct pt care on unit) . 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
[2021-12-25] MEDS: succinylcholine 20 mg/mL SDV 10mL IVP (07:24)
--- NOTE | 2021-12-25 07:26 | PM.CONSULT ---
Providers/Reason For Consult Consulting Physician/Specialty*: Dawson Verma MD/Cardiology Reason for Consult*: Cardiogenic shock Requesting Physician: Dr Casas Attending Physician: Manohar Vidal MD Primary Care Provider: Nori Nam MD History of Present Illness History of Present Illness William Hartman is a 76 year old male with past medical history of CAD, congestive heart failure with ICD in place, recent admission to outside hospital for discitis on antibiotics presented to the hospital with worsening shortness of breath, weakness and chest pressure. He was intubated overnight. He was also in shock requiring pressors. Was also put on dobutamine. Initial troponin was 95 that trended up to 172 at 6 hours. EKG demonstrated paced rhythm. Review of Systems General: Reports: ROS unobtainable due to medical condition Medications/Allergies Home Medications Medication Instructions Recorded Confirmed Last Taken Type hydrocodone 5 mg-acetaminophen 325 1 tab PO BEDTIME 06/12/21 12/25/21 Unknown History mg tablet potassium chloride 20 mEq 20 meq PO QAM 06/12/21 12/25/21 Unknown History tablet,extended release trazodone 100 mg tablet 100 mg PO BEDTIME 06/12/21 12/25/21 Unknown History albuterol sulfate 90 mcg/actuation 2 puff inhalation Q6H PRN 12/25/21 12/25/21 Unknown History aerosol inhaler Shortness Of Breath apixaban 5 mg tablet (Eliquis) 5 mg PO BID 12/25/21 12/25/21 Unknown History atorvastatin 40 mg tablet 40 mg PO QPM 12/25/21 12/25/21 Unknown History citalopram 40 mg tablet (Celexa) 40 mg PO QAM 12/25/21 12/25/21 Unknown History doxycycline hyclate 100 mg capsule 100 mg PO BID 12/25/21 12/25/21 Unknown History furosemide 40 mg tablet 40 mg PO QAM 12/25/21 12/25/21 Unknown History guaifenesin 600 mg tablet, 600 mg PO BID 12/25/21 12/25/21 Unknown History extended release 12 hr (Mucinex) insulin aspar prot-insulin aspart See Rx Instructions .Route .COMPLEX 12/25/21 12/25/21 Unknown History 100 unit/mL (70-30) subcutaneous pen (Novolog Mix 70-30FlexPen U-100) insulin glargine 100 unit/mL (3 36 unit SUBCUT BEDTIME PRN blood 12/25/21 12/25/21 Unknown History mL) subcutaneous pen (Lantus sugar Solostar U-100 Insulin) metoprolol succinate 25 mg 25 mg PO BEDTIME 12/25/21 12/25/21 Unknown History tablet,extended release 24 hr sodium chloride 0.65 % nasal spray 1 spray intranasal BID PRN Dry 12/25/21 12/25/21 Unknown History aerosol (Nasal [place] (sodium Nasal Passages chloride)) tizanidine 4 mg tablet 4 mg PO BEDTIME PRN Muscle Spasm 12/25/21 12/25/21 12/24/21 History Allergies Allergy/AdvReac Type Severity Reaction Status Date / Time acetaminophen [From Fioricet] Allergy Mild Rash Verified 12/25/21 16:43 butalbital [From Fioricet] Allergy Mild Rash Verified 12/25/21 16:43 caffeine [From Fioricet] Allergy Mild Rash Verified 12/25/21 16:43 Current Medications Generic Name Dose Route Start Last Admin Trade Name Freq PRN Reason Stop Dose Admin Enoxaparin Sodium 110 mg 12/25/21 02:30 12/25/21 02:41 Enoxaparin 120 Mg/0.8 Ml Syringe SUBCUT 110 mg Q24H CAMERON Administration Norepinephrine Bitartrate 4 mg 254 mls @ 0 mls/hr 12/24/21 23:30 12/25/21 06:29 / Dextrose IV 24 mcg/min .Q0M CAMERON 91.44 mls/hr Titration Protocol Per Protocol Dobutamine HCl/Dextrose 500 mg in 250 mls @ 0 mls/hr 12/25/21 02:15 12/25/21 06:15 Dobutamine Drip IV 10 mcg/kg/min .Q0M CAMERON 34.02 mls/hr Titration Protocol Per Protocol dexmedeTOMIDine 0.9 % NaCL 400 mcg in 100 mls @ 0 mls/hr 12/25/21 02:15 12/25/21 06:23 Precedex IV 0 mcg/kg/hr .Q0M CAMERON 0 mls/hr Titration Protocol Per Protocol Imipenem/Cilastatin Sodium 250 100 mls @ 200 mls/hr 12/25/21 03:00 12/25/21 04:39 mg/ Sodium Chloride IV Infused Q6H CAMERON Infusion Midodrine 10 mg 12/25/21 02:10 12/25/21 02:41 Midodrine 5 Mg Tablet PO 10 mg Q8H CAMERON Administration Pantoprazole Sodium 40 mg 12/25/21 02:15 12/25/21 03:33 Pantoprazole 40 Mg Sdv IVP 40 mg Q12H CAMERON Administration PFSH Acute PFSH: Medical History Abscess of vertebra CHF (congestive heart failure), NYHA class III Diabetes mellitus Discitis of thoracolumbar region HTN (hypertension) Staphylococcus aureus bacteremia Surgical History No significant past surgical history Social History Smoking and tobacco status: former smoker Vitals/I&O/Wt Last Vital Signs Temp 97.0 F L 12/24/21 21:48 Pulse 63 12/25/21 07:20 Resp 19 H 12/25/21 06:55 BP 138/47 12/25/21 07:20 Pulse Ox 96 12/25/21 07:20 O2 Del Method 12/25/21 04:08 O2 Flow Rate 3 12/25/21 02:16 FiO2 100 12/25/21 06:17 12/24/21 12/25/21 12/25/21 22:59 06:59 14:59 Intake Total 1735.173 / 1735.173 Output Total 1300 / 1300 Balance 435.173 / 435.173 Weight last 48 hrs Weight 254 lb 12.8 oz Weight 250 lb Physical Exam Narrative: GENERAL: Patient is intubated and sedated NECK: No jugular vein distension. [] HEENT: No cyanosis. No icterus. No pallor. [] HEART: Irregular. Grade 2/6 diastolic murmur LUNGS: Diminished breath sounds ABDOMEN: Soft CENTRAL NERVOUS SYSTEM: Grossly nonfocal. [] EXTREMITIES: Lower extremities with 1+ edema bilaterally. Pulses palpable in the lower extremities, both dorsalis pedis and posterior tibial. [] Data : 12/25/21 05:03 12/25/21 12:29 Micro: Microbiology 12/25/21 06:20 Blood Culture - Preliminary Blood SPECIMEN COLLECTED 08/10/22 00:38 Blood Culture - Preliminary Blood SPECIMEN COLLECTED A&P Assessment and plan (1) Moderate aortic regurgitation: Status: Acute (2) Staphylococcus aureus bacteremia: Status: Chronic (3) Discitis of thoracolumbar region: Status: Acute (4) Shock: Status: Acute (5) Acute decompensated heart failure: Status: Acute (6) JOCELYN (acute kidney injury): Status: Acute (7) Diabetes mellitus: Status: Acute (8) HTN (hypertension): Status: Acute Plan Patient had presented with shock and respiratory distress. Likely etiology is septic. He had recent admission at outside hospital where he had staph bacteremia. Echocardiogram shows normal LV systolic function. He does have at least moderate aortic regurgitation. We will proceed with transesophageal echocardiogram to rule out infective endocarditis/root abscess. Continue pressor support. Nephrology has been consulted. Will hold off on cardiac catheterization/cardiac support device till infective endocarditis is ruled out. With normal EF likelihood of stent occlusion is low. Thank you for involving us with care of this patient. We will continue to follow. Please call with questions. Consult Attestations Medical Necessity Statement: Care expected to cross 2 midnights Coding Level of Care Code Acute Screw Machine Set Up Operator Tool for [facility] Fwd Diagnoses Moderate aortic regurgitation I35.1 Staphylococcus aureus bacteremia R78.81; B95.61 Discitis of thoracolumbar region M46.45 Shock R57.9 Acute decompensated heart failure I50.9 JOCELYN (acute kidney injury) N17.9 Diabetes mellitus E11.9 HTN (hypertension) I10
--- NOTE | 2021-12-25 07:28 | PC.NURSE ---
Addendum entered by Fahad Conrad RN 12/25/21 07:30: Witnessed waste Original Note: Wasted 80mg succinylcholine and 17mg etomidate with GELY Vásquez
[2021-12-25] MEDS: propofol 1,000 MG/100 ML INJ 34.67 MG IV (07:30)
[2021-12-25 07:40] LABS: Glucose Point of Care 333 mg/dL (70-110)
--- NOTE | 2021-12-25 07:44 | US_ITS ---
WS: [id number] RENAL ULTRASOUND HISTORY: maeyla COMPARISON: None available. TECHNIQUE: 2-D and color Doppler imaging of the kidney submitted. Right kidney: 11.3 cm x 6.8 cm x 5.7 cm. Normal echogenicity with no hydronephrosis or mass. Very slight bulge of the contour involving the co rtex in the mid kidney. No abnormality was noted in the kidney on a recent CT from 12/24/2021. Left kidney: 10.9 cm x 6.5 cm x 5.1 cm. Normal echogenicity with no hydronephrosis or mass. Aorta: Normal. Urinary Bladder: Nondistended bladder. There is a Acuna catheter present in the bladder. US/US renal BI* [id number] IMPRESSION: Normal renal ultrasound.
--- NOTE | 2021-12-25 08:11 | PC.NURSE ---
Dr. De León at bedside gave v.o. to hold lasix drip and turn off dobutamine drip
[2021-12-25] MEDS: hydrocortisone 100 mg/2 mL SDV 50 MG IVP ×2 (08:34→14:52)
[2021-12-25] MEDS: insulin lispro 100 unit/1 mL SUBCUT ×2 (08:35→14:52)
[2021-12-25] MEDS: aspirin 81 mg EC Tablet PO (08:35)
[2021-12-25] MEDS: magnesium sulfate premix 2 GM/50 ML PIGGYBACK IV (08:36)
[2021-12-25 08:37] LABS: ABG PCO2 42.4 mmHg (35-45); ABG PH Result 7.27 (7.35-7.45); Alveolar-Arterial Oxygen Gradi 55.1 mmHg (5-10); Arterial Blood Gas Hematocrit 30.2 % (42-52); Blood Gas Allen Test Pos; Blood Gas Operator Identificat BD; Blood Gas Sample Site Brachial, left; Blood Gas Sample Type Arterial; Carboxyhemoglobin 1.2 %THgb (0.4-20.1); HCO3 ABG 19.5 mmol/L (22-26); HGB O2 Sat 95.3 % (95-100); Ionized Calcium Level - ABG 1.1 mmol/L (1.1-1.4); Methemoglobin 0.6 % (0.4-1.5); Oxygen Device VENT; Oxygen Saturation ABG 97.1; PO2 ABG 95.5 mmHg (80.0-100.0); Potassium Level - ABG 5.7 mmol/L (3.5-5.0); Total Hemoglobin 9.8 g/dL (14-18)
[2021-12-25 08:38] LABS: Anion Gap 21.4 (5-19); Blood Urea Nitrogen 57 mg/dL (8-23); Calcium 7.9 mg/dL (8.5-10.5); Carbon Dioxide 19 mmol/L (22-29); Chloride 93 mmol/L (98-107); Glucose 381 mg/dL (65-115); Osmolality Calculated 298 mOsm/kg (285-295); Potassium 5.4 mmol/L (3.5-5.1); Sodium 128 mmol/L (136-145)
--- NOTE | 2021-12-25 08:47 | PC.NURSE ---
Dr. De León at bedside, gave v.o. for 2 gm IV calcium gluconate x1. 10 units IVP insulin, 1 amp D50 IVP
[2021-12-25] MEDS: dextrose 50% syringe 50 mL IVP ×2 (08:58→17:13)
[2021-12-25] MEDS: calcium gluconate 0.9% NaCL 1 GM/50 ML PREMIX IV ×3 (08:58→17:13)
[2021-12-25] MEDS: insulin regular-human 10 UNIT in SYRINGE 1 EACH IVP ×2 (08:59→17:13)
[2021-12-25] MEDS: norepinephrine 8 MG in dextrose 5 % 500 ML 68.58 MG IV (09:00)
[2021-12-25] MEDS: heparin drip 25,000 UNIT/500 ML PREMIX 67.03 UNIT IV (09:09)
--- NOTE | 2021-12-25 09:46 | PC.NURSE ---
Shift change upon entering unit for shift change this nurse noted intubation being performed by Dr. Vidal and fast food shift lead staff, this nurse took over care after intubation
--- NOTE | 2021-12-25 09:47 | PC.PHAR ---
Addendum entered by Madelin De Santiago 12/25/21 10:00: pts states the pts amiodarone 200mg bid filled 11/05/21 30d/s was dced-also states the plavix 75mg daily was dced llast filled 11/05/21 30d/s Original Note: pt unable to verify medications-pts bennie verified pts medications states she sets his medications up-pts [facility] med list has aspirin 81mg daily pts states pt is not taking-pts va med list has hydralazine 50mg tid pts states pt not taking-pts va med list has novolin n 55 units in the am and 35 units in the pm pts states the box has novolog mix 70/30 ext med history shows last filled 07/30/21-pts states the pt is not taking metformin 500mg bid medication on pts va med list-pts va med list has kcl 20meq take 10meq daily prn pts states the pt takes 20meq daily-pts va med list has ticagrelor 90mg bid pts states the pt takes eliquis states the pt normally takes 5mg bid states for the last 4 or 5 days the pt has just been taking 5mg hs-
[2021-12-25] MEDS: propofol 1,000 MG/100 ML INJ 27.74 MG IV ×2 (09:55→18:26)
[2021-12-25 10:58] LABS: Glucose Point of Care 344 mg/dL (70-110)
[2021-12-25 10:58] LABS: Glucose Point of Care 340 mg/dL (70-110)
[2021-12-25 11:15] LABS: Amphetamines Screen Urine Negative (Negative); Barbiturates Screen Urine Negative (Negative); Benzodiazepines Screen Urine Negative (Negative); Cocaine Screen Urine Negative (Negative); Opiate Screen Urine Positive (Negative); PCP Screen Urine Negative (Negative); THC Screen Urine Negative (Negative)
[2021-12-25 11:21] LABS: Urine Random Sodium 15 mmol/L
[2021-12-25 11:27] LABS: Potassium, Radom Urine 42 mmol/L; Urine Creatinine 123 mg/dL (39-259); Urine Protein Random 18 mg/dL; Urine Random Chloride 10 mmol/L; Urine Random Sodium 15 mmol/L
[2021-12-25] MEDS: DOBUTamine drip 500 MG/250 ML PREMIX 8.67 MG IV (12:24)
--- NOTE | 2021-12-25 13:16 | PM.PN ---
Subjective Subjective: Patient seen multiple times throughout the day today. Admitted overnight. As per my conversation with patient's and review of chart from [facility]. Patient was admitted at [facility] in [place] earlier in June at that time he underwent PCI and pacemaker was placed because of slow heart rate. Shortly after that patient was rehospitalized for pneumonia and was found to have Staphylococcus lugdunensis bacteremia for which he was discharged on oral doxycycline. In October echocardiogram was done which showed moderate aortic stenosis with trace aortic regurgitation. Patient was at [facility] multiple times in last 1 month for back pain for which he was diagnosed to have osteomyelitis and vertebral abscess. He underwent from what sounds like IR guided aspiration which came out to be benign and no growth on culture so he was continued on doxycycline. Patient presented last night to the ER with chest pressure, difficulty in breathing was found to be in shock and shortly after was put on ventilator for acute respiratory failure. During the course of the day patient has gone up to 3 pressors including vasopressin, Levophed and dobutamine. Mean arterial pressures have been over 60. Urine output is minimal up to 300 cc. Documented urine output overnight is around 1200 cc. In morning was on ventilator setting of 100% FiO2, 10 PEEP, tidal volume of 500. During the day ventilator settings were turned down to 70% FiO2 with saturation of more than 96% Vitals/I&O/Wt Last Vital Signs Temp 97.0 F L 12/24/21 21:48 Pulse 60 12/25/21 09:45 Resp 18 12/25/21 11:10 BP 105/51 12/25/21 09:45 Pulse Ox 97 12/25/21 11:10 O2 Del Method 12/25/21 04:08 O2 Flow Rate 3 12/25/21 02:16 FiO2 60 12/25/21 11:10 12/24/21 12/25/21 12/25/21 22:59 06:59 14:59 Intake Total 1735.173 / 1735.173 133.786 / 133.786 Output Total 1300 / 1300 Balance 435.173 / 435.173 133.786 / 133.786 Weight last 48 hrs Weight 115.575 kg Weight 113.398 kg Physical Exam Narrative: General: Intubated, sedated HEENT: PERRLA, pupils bilaterally equal and reactive Chest: Bilateral bronchial breath sounds, coarse crackles present diffuse in the lung marie bilaterally CVS: S1-S2 regular, early diastolic murmur present at the aortic area radiating to apex 2-3/6, no tachycardia, no gallops, no rubs Abdomen: Soft, nontender, no organomegaly, bowel sounds present, morbidly obese Neuro: No focal deficits, no facial deformity, sedated Data : 12/25/21 05:03 12/25/21 12:29 Micro: Microbiology 12/25/21 06:20 Blood Culture - Preliminary Blood SPECIMEN COLLECTED 12/25/21 00:38 Blood Culture - Preliminary Blood SPECIMEN COLLECTED A&P Assessment and plan (1) Shock: Status: Acute (2) Acute respiratory failure with hypoxia: Status: Acute (3) Acute decompensated heart failure: Status: Acute (4) Discitis of thoracolumbar region: Status: Acute (5) Abscess of vertebra: Status: Acute (6) Moderate aortic regurgitation: Status: Acute (7) Staphylococcus aureus bacteremia: Status: Chronic (8) JOCELYN (acute kidney injury): Status: Acute (9) Metabolic acidosis: Status: Acute (10) Hyperkalemia: Status: Acute (11) CAD (coronary artery disease): Status: Acute Plan Shock: Most likely combination of cardiogenic and septic shock. Septic shock most likely secondary to discitis versus possible infective endocarditis Cardiogenic shock most likely secondary to new acute at least moderate aortic regurgitation. Echocardiogram results shows an EF of 55 to 60%, no regional wall motion abnormality, at least moderate aortic regurgitation, mild TR, moderate pulmonary hypertension, dilated left atrium. Keep mean artery pressure over 65. For now continue with dobutamine given new acute moderate aortic regurgitation. Levophed and vasopressin to be weaned off keeping mean arterial pressure over the goal. Follow-up blood culture, urine culture, MRSA swab, sputum culture, procalcitonin. For now cover broad-spectrum with vancomycin and imipenem. Vanco random level daily given acute kidney injury. MRI recently done at [facility] consistent with vertebral abscess. Appreciate CT chest abdomen pelvis results. Patient will need a TACOS to confirm etiology and quantification of aortic regurgitation. Appreciate cardiology recommendations. Less likely ACS given normal EF with no R WMA. Cycle troponin in AM. Continue with aspirin, statin. Switch from full dose Lovenox to heparin drip. Balloon pump versus IABP is a consideration. We will continue to follow-up. If patient does better and oxygen requirement and pressors requirement start trending down will consult orthopedics for further management of vertebral osteomyelitis/abscess. For now we will continue with broad-spectrum IV antibiotics and follow-up culture results. Given severe shock will start patient on hydrocortisone 50 mg every 6 hourly. Albumin every 8 hourly for 1 day. Acute kidney injury/metabolic acidosis/hyperkalemia: Most likely secondary to combination of shock in setting of Lasix as an outpatient. Monitor input output strictly. Medical reconciliation done for nephrotoxic drugs. Appreciate nephrology recommendations. Given low blood pressures with high pressor requirement, stable oxygen supplementation we will hold off on diuresis for now. If mean arterial pressure remained over 65 for few hours can dose IV Lasix. Patient is at high risk of requiring dialysis. Family is agreeable. Monitor BMP every 12 hourly for now. Treat hyperkalemia with IV calcium, IV D50 and 10 units insulin accordingly. Wean off ventilator keeping saturation over 90%. DuoNebs every 6 hour, desonide twice daily. Type 2 diabetes mellitus: Continue with insulin sliding scale every 6 hourly. Check A1c. Keep blood sugars around 200. Monitor anion gap. Severely guarded prognosis. Sedation: Propofol, fentanyl. We will hold off on Precedex given bradycardia. Right CVP: Placed on 12/25 Acuna catheter: Placed on 12/25 Full code. NPO. Protonix for PUD prophylaxis. Heparin drip will suffice as DVT prophylaxis. Severely guarded prognosis. Patient's care plan, guarded prognosis, high chances of cardiac arrest discussed in detail with his at bedside. His is the DPOA. is agreeable to dialysis if needed. Attestations Medical Necessity Statement*: Requires further hospitalization for management of shock, acute kidney injury, hyperkalemia, metabolic acidosis Critical Care Time: The high probability of a clinically significant, sudden or life threatening deterioration of the patient's [cardiac, renal, ID, pulmonary, neurological] system(s) required my full and direct attention, intervention and personal management. The critical care time is as shown. This time is in addition to time spent performing any reported procedures but includes the following: [x] Data and vital sign review and interpretation [x] Patient assessment, examination and intervention [x] Documentation [x] Medication orders and management Critical Care Time (min): 100 Coding Level of Care Code Acute Technical Sales Support Manager for [facility] Hermilo Diagnoses Shock R57.9 Acute respiratory failure with hypoxia J96.01 Acute decompensated heart failure I50.9 Discitis of thoracolumbar region M46.45 Abscess of vertebra M46.20 Moderate aortic regurgitation I35.1 Staphylococcus aureus bacteremia R78.81; B95.61 JOCELYN (acute kidney injury) N17.9 Metabolic acidosis E87.2 Hyperkalemia E87.5 CAD (coronary artery disease) I25.10
[2021-12-25 13:17] LABS: Lactic Sepsis W/Reflex 1.9 mmol/L (0.5-2.2)
[2021-12-25 14:42] LABS: Alanine Aminotransferase 16 U/L (0-41); Albumin Level 3.3 g/dL (3.5-5.2); Alkaline Phosphatase 94 IU/L (40-130); Aspartate Amino Transferase 21 U/L (0-40); Blood Urea Nitrogen 60 mg/dL (8-23); Calcium 8.4 mg/dL (8.5-10.5); Carbon Dioxide 20 mmol/L (22-29); Creatine Phosphokinase 90 U/L (39-308); Globulin 2.2 g/dL (1.3-4.6); Glucose 307 mg/dL (65-115); Total Bilirubin 0.3 mg/dL (0.15-1.2); Total Protein 5.5 g/dL (6.6-8.7)
[2021-12-25 14:48] LABS: Glucose Point of Care 332 mg/dL (70-110)
--- NOTE | 2021-12-25 14:56 | USCV_ITS ---
William Hartman Age: 76 Gender: M : 1945 Exam Date: 12/25/2021 16:33 Ordering Phys: Jewels Orozco MD ([email or web address]) Technologist: CHRISTEL Exam Location: [facility] [place] Indication: Infective endocarditis BP: 116 / 47 HR: Rhythm: Sinus Technical Quality: Adequate MEASUREMENTS (Male / Female) Normal Values 2D ECHO LVOT Diameter 2.0 cm DOPPLER AV Peak Velocity 362.0 cm/s LVOT Peak Velocity 104.0 cm/s AV Area Cont Eq vti 0.9 cm squared AV Area Cont Eq pk 0.9 cm squared Medications Patient was intubated and sedated with propofol. Complications Intubation moderately difficult. Attempts x3. No blood on probe post procedure. Proc. Components The TACOS probe was passed into the posterior pharynx , mid- esophagus, distal esophagus, and gastric fundus. FINDINGS Left Ventricle Normal left ventricular cavity size, wall thickness and systolic function. Left ventricular ejection fraction is estimated at 60 %. No regional wall motion abnormalities. Right Ventricle Normal right ventricular size and systolic function. Right Atrium Normal right atrial size. Left Atrium Moderately increased left atrial size. LA Appendage Normal left atrial appendage. Normal flow velocities in the left atrial appendage. No thrombus visualized in the left atrial appendage. IA Septum Normal interatrial septum. No patent foramen ovale or atrial septal defect. Mitral Valve Structurally normal mitral valve. No mitral valve stenosis. Moderate somewhat posteriorly directed mitral valve regurgitation. Aortic Valve Markedly thickened and calcified aortic valve. Severe aortic valve stenosis, peak velocity 3.6 m/s, peak gradient 52 mm Hg, mean gradient 26.1 mmHg, COMFORT 0.9 cm squared. Moderate to severe aortic valve regurgitation. Paravalvular echolucent area seen. This is highly suggestive of aortic root abscess. Tricuspid Valve Structurally normal tricuspid valve. No tricuspid valve stenosis. Trace tricuspid valve regurgitation. Pulmonic Valve Structurally normal pulmonic valve. Trace pulmonary valve regurgitation. Pericardium No pericardial effusion. Aorta Dilated aortic root measured at 44 mm and normal sized proximal ascending aorta. No aortic dilation, aneurysm or dissection. Grade III atheroma noted in mid and proximal descending aorta and aortic arch. CONCLUSIONS 1. Normal left ventricular cavity size, wall thickness and systolic function. Left ventricular ejection fraction is estimated at 60 %. No regional wall motion abnormalities. 2. Severe aortic valve stenosis, peak velocity 3.6 m/s, peak gradient 52 mm Hg, mean gradient 26.1 mmHg, COMFORT 0.9 cm squared. Moderate to severe aortic valve regurgitation. Paravalvular echolucent area seen. This is highly suggestive of aortic root abscess. 3. Moderate somewhat posteriorly directed mitral valve regurgitation. Jewels Orozco MD (Electronically Signed) Final Date: 26 December 2021 11:40 Amended: 26 December 2021 11:43 C
[2021-12-25 15:32] LABS: Uric Acid 10.1 mg/dL (3.4-7.0); Vancomycin Random 19.3 ug/mL (20.0-40.0)
--- NOTE | 2021-12-25 15:55 | PC.NURSE ---
This nurse notified Dr. De León of levophed down to 10 mcgs, titrated per protocol, Dr. De León gave t.o. for 80 mg lasix IVP x1 dose
[2021-12-25 16:03] LABS: Hepatitis C Virus Antibody Non-Reactive (Nonreactive)
[2021-12-25] MEDS: FUROsemide 10 mg/mL SDV 10mL 80 MG IVP (16:08)
[2021-12-25 16:21] LABS: Anion Gap 22.2 (5-19); Chloride 92 mmol/L (98-107); Osmolality Calculated 294 mOsm/kg (285-295); Potassium 6.2 mmol/L (3.5-5.1); Sodium 128 mmol/L (136-145)
--- NOTE | 2021-12-25 16:39 | PM.CONSULT ---
Providers/Reason For Consult Consulting Physician/Specialty*: Regan Kwan MD Reason for Consult*: Urgent need for hemodialysis access Requesting Physician: Dr. De León Attending Physician: Live De León MD Primary Care Provider: Nori Nam MD History of Present Illness History of Present Illness Mr. William Hartman is a 76 year old male with history of chronic respiratory failure with hypoxia due to volume overload. History of diastolic congestive heart failure,history of paroxysmal atrial fibrillation on Eliquis, history of osteomyelitis of thoracic spine on doxycycline, history of discitis on doxycycline, history of moderate aortic stenosis, history of insulin-dependent type 2 diabetes mellitus, history of CKD stage III recently discharged with a creatinine of 2.42, history of bilateral pleural effusions, CAD status post stenting in July 2021, history of ICD placement. Patient is currently in critical status and was seen and evaluated by nephrology service after being admitted to the hospitalist service due to hyperkalemia and increasing creatinine and the recommendation is to perform urgent hemodialysis, patient is currently on heparin drip, with current concern of discitis versus possible infective endocarditis. General surgery was consulted to place an urgent temporary hemodialysis catheter Review of Systems General: Reports: ROS unobtainable due to medical condition Medications/Allergies Home Medications Medication Instructions Recorded Confirmed Last Taken Type hydrocodone 5 mg-acetaminophen 325 1 tab PO BEDTIME 06/12/21 12/25/21 Unknown History mg tablet potassium chloride 20 mEq 20 meq PO QAM 06/12/21 12/25/21 Unknown History tablet,extended release trazodone 100 mg tablet 100 mg PO BEDTIME 06/12/21 12/25/21 Unknown History albuterol sulfate 90 mcg/actuation 2 puff inhalation Q6H PRN 12/25/21 12/25/21 Unknown History aerosol inhaler Shortness Of Breath apixaban 5 mg tablet (Eliquis) 5 mg PO BID 12/25/21 12/25/21 Unknown History atorvastatin 40 mg tablet 40 mg PO QPM 12/25/21 12/25/21 Unknown History citalopram 40 mg tablet (Celexa) 40 mg PO QAM 12/25/21 12/25/21 Unknown History doxycycline hyclate 100 mg capsule 100 mg PO BID 12/25/21 12/25/21 Unknown History furosemide 40 mg tablet 40 mg PO QAM 12/25/21 12/25/21 Unknown History guaifenesin 600 mg tablet, 600 mg PO BID 12/25/21 12/25/21 Unknown History extended release 12 hr (Mucinex) insulin aspar prot-insulin aspart See Rx Instructions .Route .COMPLEX 12/25/21 12/25/21 Unknown History 100 unit/mL (70-30) subcutaneous pen (Novolog Mix 70-30FlexPen U-100) insulin glargine 100 unit/mL (3 36 unit SUBCUT BEDTIME PRN blood 12/25/21 12/25/21 Unknown History mL) subcutaneous pen (Lantus sugar Solostar U-100 Insulin) metoprolol succinate 25 mg 25 mg PO BEDTIME 12/25/21 12/25/21 Unknown History tablet,extended release 24 hr sodium chloride 0.65 % nasal spray 1 spray intranasal BID PRN Dry 12/25/21 12/25/21 Unknown History aerosol (Nasal Brogue (sodium Nasal Passages chloride)) tizanidine 4 mg tablet 4 mg PO BEDTIME PRN Muscle Spasm 12/25/21 12/25/21 12/24/21 History Allergies Allergy/AdvReac Type Severity Reaction Status Date / Time acetaminophen [From Fioricet] Allergy Mild Rash Verified 12/25/21 16:43 butalbital [From Fioricet] Allergy Mild Rash Verified 12/25/21 16:43 caffeine [From Fioricet] Allergy Mild Rash Verified 12/25/21 16:43 Current Medications Generic Name Dose Route Start Last Admin Trade Name Freq PRN Reason Stop Dose Admin Aspirin 81 mg 12/25/21 09:00 12/25/21 08:35 Aspirin 81 Mg Ec Tablet PO 81 mg DAILY CAMERON Administration Hydrocortisone Sodium Succinate 50 mg 12/25/21 08:30 12/25/21 14:52 Hydrocortisone 100 Mg/2 Ml Sdv IVP 50 mg Q6H CAMERON Administration Imipenem/Cilastatin Sodium 250 100 mls @ 200 mls/hr 12/25/21 03:00 12/25/21 14:52 mg/ Sodium Chloride IV 200 mls/hr Q6H CAMERON Administration Fentanyl 2,500 mcg/ Sodium 250 mls @ 0 mls/hr 12/25/21 06:45 12/25/21 08:00 Chloride IV 200 mcg/hr .Q0M CAMERON 20 mls/hr Administration Protocol Per Protocol Propofol 1,000 mg in 100 mls @ 0 mls/hr 12/25/21 06:45 12/25/21 09:55 Diprivan IV 40 mcg/kg/min .Q0M CAMERON 27.74 mls/hr Administration Protocol Per Protocol Norepinephrine Bitartrate 8 mg 508 mls @ 0 mls/hr 12/25/21 08:15 12/25/21 09:00 / Dextrose IV 18 mcg/min .Q0M CAMERON 68.58 mls/hr Administration Protocol Per Protocol Heparin Sodium/Sodium Chloride 25,000 unit in 500 mls @ 0 mls/hr 12/25/21 08:30 12/25/21 09:09 Heparin Drip IV 29 unit/kg/hr .Q0M CAMERON 67.03 mls/hr Administration Protocol Per Protocol calcium gluconate 0.9% NaCL 1 gm in 50 mls @ 100 mls/hr 12/25/21 08:45 12/25/21 11:34 Calcium Gluconate 0.9% Nacl IV 12/26/21 09:14 100 mls/hr Q30MIN CAMERON Administration Albumin Human 25 gm in 100 mls @ 60 mls/hr 12/25/21 10:30 12/25/21 11:02 Albumin IV 60 mls/hr Q8H CAMERON Administration Vasopressin 40 unit/ Sodium 40 mls @ 0.03 mls/min 12/25/21 12:15 12/25/21 12:40 Chloride IV 0.01 mls/min CONT CAMERON Administration Dobutamine HCl/Dextrose 500 mg in 250 mls @ 0 mls/hr 12/25/21 12:15 12/25/21 12:24 Dobutamine Drip IV 2.5 mcg/kg/min .Q0M CAMERON 8.67 mls/hr Administration Protocol Per Protocol Insulin Human Lispro 0 unit 12/25/21 08:30 12/25/21 14:52 Insulin Lispro 100 Unit/1 Ml SUBCUT 10 unit Q6H CAMERON Administration Protocol Pantoprazole Sodium 40 mg 12/25/21 09:00 12/25/21 08:41 Pantoprazole 40 Mg Sdv IVP 40 mg DAILY CAMERON Administration PFSH Acute PFSH: Medical History Abscess of vertebra CHF (congestive heart failure), NYHA class III Diabetes mellitus Discitis of thoracolumbar region HTN (hypertension) Staphylococcus aureus bacteremia Surgical History No significant past surgical history Social History Smoking and tobacco status: former smoker Vitals/I&O/Wt Last Vital Signs Temp 97.0 F L 12/24/21 21:48 Pulse 60 12/25/21 14:15 Resp 24 H 12/25/21 14:00 BP 125/47 12/25/21 14:15 Pulse Ox 97 12/25/21 14:00 O2 Del Method 12/25/21 04:08 O2 Flow Rate 3 12/25/21 02:16 FiO2 50 12/25/21 14:00 12/25/21 12/25/21 12/25/21 06:59 14:59 22:59 Intake Total 1735.173 / 1735.173 233.786 / 233.786 Output Total 1300 / 1300 Balance 435.173 / 435.173 233.786 / 233.786 Weight last 48 hrs Weight 254 lb 12.8 oz Weight 250 lb Physical Exam Narrative: Patient is intubated and sedated in critical status BMI 34 Head and neck examination PERRLA no masses no cervical lymphadenopathy no jaundice Right IJ central line in place Chest fair air entry bilateral Abdomen nontender nondistended soft no organomegaly guarding or rigidity/no signs of peritonitis Acuna cath in place Extremities no cyanosis no clubbing no edema Data : 12/25/21 05:03 12/25/21 12:29 Micro: Microbiology 12/25/21 06:20 Blood Culture - Preliminary Blood SPECIMEN COLLECTED 12/25/21 00:38 Blood Culture - Preliminary Blood SPECIMEN COLLECTED A&P Assessment and plan (1) JOCELYN (acute kidney injury): Plan of care; After history physical examination and reviewing the chart and reviweing the images with my personal intrepretation.I counseled the patient's spouse for non- tunneled hemodialysis catheter placement, indications, risks including possibility of , stroke, heart attack, major bleeding, infection, pneumonia, organ failure, failure to benefit, prolonged hospital stay, pain after the procedure pneumothorax that may require Chest tube(s) placement and potential injury of major vascular structures that may require Thoractomy, benefits,indications and alternatives were all discussed with the patient's spouse, patient's spouse understands and is interested to proceed. Rationale was carefully and clearly discussed with the patient's spouse in the presence of nursing staff Justo.Appropriate informed consent have been reviewed and signed. Status: Acute Consult Attestations Medical Necessity Statement: Per admitting's Per admitting Time Spent in Patient Care: Greater than 35 minutes Critical Care Time: Time spent with the patient time spent in patient's care at least 1 hour providing critical care and placement of nontunneled right femoral vein hemodialysis catheter Procedures Time out/Consent Time Out Performed: Yes Consent for Procedure: Consent obtained from other (indicate) (Patient's spouse ) and Agrees to proceed with procedure Procedure Narrative TYPE OF PLACEMENT: Temporary dialysis catheter in the right femoral vein TUNNELED:(NO) IMAGING UTILIZED:~ [Ultrasound guided approach/and interpretation of images done by me through the procedure] ANESTHESIA: [Local lidocaine 1%] Surgeon Regan Kwan MD Communications Tower Technician nursing staff Justo REASON FOR PLACEMENT: [Acute kidney injury] DESCRIPTION OF PROCEDURE PLACEMENT:~ Medications were reviewed to assess for anticoagulant usage. Risks and benefits and prevention of central line associated blood stream infection (CLABSI) were discussed with the patient/CPOA, and a consent was obtained. Monitors were in place and monitored throughout the procedure. A time out was performed with the nurse present. All necessary supplies were available prior to start. Hand hygiene was completed prior to starting. Maximum barrier technique was utilized including a sterile gown, sterile gloves with a hat and mask. Site was was prepped with [chlorhexidine] and a full body drape was placed. 5 mL of 1% lidocaine was injected into the skin with a 25 gauge needle. the needle was inserted into the right femoral vein under ultrasound guidance and under sterile technique, interpretation of ultrasound images was done by me throughout the procedure. A wire was then advanced without difficulty. A small incision was then made to facilitate the dilator over which the catheter was placed. The wire was then removed. The catheter was threaded to hub of the catheter. All ports were then aspirated showing venous return and were each then flushed with sterile normal saline. The catheter was then sutured in place and a Tegaderm was used to cover the insertion site. Patient tolerated the procedure without difficulty or complication. Patients vital signs remained stable throughout the procedure. At this time it is safe to use the [right femoral vein hemodialysis catheter] line. I was present for the whole entire procedure Coding Level of Care Code Acute Painter And Decorator for Chg Fwd Diagnoses JOCELYN (acute kidney injury) N17.9
--- NOTE | 2021-12-25 16:53 | PC.NURSE ---
Dr. De León spoke with Dr. Smith and Rufina regarding potassium of 6.[address] Almaraz to place dialysis cath one hour after heparin off, heparin turned off approximately 1630
--- NOTE | 2021-12-25 16:55 | PC.NURSE ---
Dr. Orozco at bedside performing TACOS
--- NOTE | 2021-12-25 17:40 | PC.NURSE ---
attempted to reach for consent for dialysis cath
--- NOTE | 2021-12-25 17:44 | PC.NURSE ---
Dr. Almaraz speaking with via phone for dialysis cath consent
--- NOTE | 2021-12-25 18:35 | PC.NURSE ---
Dr. De León gave v.o. to hold heparin
[2021-12-25 18:41] LABS: Glucose Point of Care 286 mg/dL (70-110)
--- NOTE | 2021-12-25 19:07 | PC.NURSE ---
Dr. De León called, informed this nurse will come in, patient will move to comfort care when is ready
--- NOTE | 2021-12-25 19:18 | PC.NURSE ---
Called and spoke with Nahoym concaver, informed of change in care plan. Updated on DC of Dialysis and plan for comfort care. Nahomy verbalized understanding.
[2021-12-25 19:44] LABS: Hepatitis B Surface Antigen Non-Reactive (Nonreactive); Hepatitis C Virus Antibody Non-Reactive (Nonreactive)
--- NOTE | 2021-12-25 20:38 | P.PNCC_ITS ---
Critical Care Event Note The high probability of a clinically significant, sudden or life threatening deterioration of the patient's [] system(s) required my full and direct attention, intervention and personal management. The critical care time is as shown. This time is in addition to time spent performing any reported procedures but includes the following: [x] Data and vital sign review and interpretation [x] Patient assessment, examination and intervention [x] Documentation [x] Medication orders and management Critical Care Time Code activated: No Critical Care Time (min): 45 Additional information about critical care time: - Patient was seen this evening, at bedside = Remains on multiple pressors, including dobutamine, Levophed, vaso, high-dose, combination of cardiogenic and septic shock -Has evidence of AK -Patient's had extensive discussion with DR. 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, evidence of aortic root infection, with recurrent vertebral osteomyelitis -Case was discussed with tertiary level care center, patient is a poor candidate for surgical intervention, has a high risk of morbidity and mortality with transport, has a high risk of morbidity and mortality with surgical intervention -Case was extensively discussed with the patient's , she would like to make him comfort care -I extensively discussed risks and benefits of comfort care, she voiced understanding, all questions answered, opportunity answer questions, agreed to proceed with comfort care Coding Level of Care Code Acute Nutrition Internship for Jm Akhtar
--- NOTE | 2021-12-25 20:59 | PC.NURSE ---
Addendum entered by Fahad Conrad RN 12/25/21 21:07: Received call from Milagro Gonzalez who stated patient is not a candidate for donation, ok to withdraw care. Call with TOD. Addendum entered by Fahad Conrad RN 12/25/21 21:02: Reference number [id number], awaiting call back from coordinator. Original Note: Called [facility], Avni Jean answered
[2021-12-25] MEDS: morphine 4 mg/mL SDV 1 mL IVP ×3 (21:52→23:50)
[2021-12-25] MEDS: glycopyrrolate 0.2 mg/mL SDV 2 mL IV (21:52)
--- NOTE | 2021-12-25 22:04 | PC.NURSE ---
Extubated 2152
--- NOTE | 2021-12-25 22:30 | PC.NURSE ---
Contacted [employer] for ICD deactivation. Awaiting call back from slot key person personnel.
--- NOTE | 2021-12-25 22:57 | PC.NURSE ---
Spoke with Fidus Writer, confirmed patient only has dual chamber pacemaker. Will not be turned off.
[2021-12-26] MEDS: morphine 4 mg/mL SDV 1 mL IVP ×13 (00:46→12:17)
--- NOTE | 2021-12-26 01:05 | PC.NURSE ---
Patient having small amounts of spastic movement in extremities. Gasping breathing. Will increase frequency of morphine to aid with clear discomfort.
--- NOTE | 2021-12-26 01:55 | PC.NURSE ---
Increased WOB noted with continued spastic movements in extremities, will advance dose of morphine 2mg per order.
--- NOTE | 2021-12-26 02:12 | PC.NURSE ---
Decreased WOB, distress seems absent, no spastic movement. Current oximetry shows 87% on 2L NC. Will continue at 6mg Morphine q30 minutes.
[2021-12-26] MEDS: glycopyrrolate 0.2 mg/mL SDV 2 mL IV (02:19)
[2021-12-26 03:36] LABS: Hepatitis B Surface AB > 1000.0 (11.5-1000)
--- NOTE | 2021-12-26 05:54 | PC.NURSE ---
Notified Ivania in Pharmacy of high morphine usage, two 4mg vials q30 mins with a 2mg waste q30 mins.
--- NOTE | 2021-12-26 06:43 | PC.NURSE ---
Wasted 4.759 mL of Propofol, Witnessed by hot car chargerGELY Avalos.
[2021-12-26 08:00] VITALS: BP 94/46; PULSE 60; O2SAT 87
[2021-12-26 09:48] VITALS: RESP 12
[2021-12-26 10:00] VITALS: BP 94/46; PULSE 60; O2SAT 90
[2021-12-26 12:00] VITALS: BP 96/60; PULSE 60; O2SAT 89
[2021-12-26 14:04] LABS: Anti-streptolysin O 88 IU/mL (<200)
[2021-12-26 15:09] LABS: Anti-Nuclear Antibody Screen NEGATIVE (NEGATIVE)
--- NOTE | 2021-12-26 18:03 | PC.NURSE ---
MTS notified. Pt is potentially a candidate for donation.
--- NOTE | 2021-12-26 18:28 | PC.NURSE ---
pt at 1728, confirmed with 2nd rn. dr. blanco notified, house sup. notified.
--- NOTE | 2021-12-26 18:51 | PM.DDS ---
Discharge Providers DDS Date of Admission: 12/25/21 02:10 Date Summary Completed: 12/28/21 Attending Provider at Admission: Manohar Vidal MD Attending Provider at Discharge: Live De León MD Consults: Cardiology: Dr. Verma Nephrology: Telemetry nephrology Surgery: Dr. Kwan Primary Care Provider: Nori Nam MD Diagnoses Hospital Diagnoses (1) Moderate aortic regurgitation: (2) Staphylococcus aureus bacteremia: (3) Discitis of thoracolumbar region: (4) Shock: (5) Acute decompensated heart failure: (6) JOCELYN (acute kidney injury): (7) Diabetes mellitus: (8) HTN (hypertension): Reason for Visit Reason for Visit CP Summary Summary Summary: William Hartman is a 76 year old male chronic respiratory failure with hypoxia secondary to volume overload, pleural effusion, diastolic CHF, history of paroxysmal atrial fibrillation on Eliquis, history of osteomyelitis of thoracic spine on doxycycline, history of discitis on doxycycline, history of moderate aortic stenosis, history of insulin-dependent type 2 diabetes mellitus, history of CKD stage III recently discharged with a creatinine of 2.42, history of bilateral pleural effusions, CAD status post stenting in July 2021, history of ICD placement, history of heart failure with preserved ejection fraction, who presents to [facility] due to chest pain, shortness of breath and low blood pressures.? Patient was recently discharged from [facility] on December 18, for which she was hospitalized for acute respiratory failure with CKD stage III, also concerns for discitis on doxycycline, his was telling me that he was doing well since his discharge, but this evening he started complaining of chest heaviness, shortness of breath, and his blood pressures were low.? does tell me that he has been having more of a cough, no significant aspiration episodes.? No dysuria complaints.? He has been more confused this evening.? No history of RAMONE.? No calf pain or calf swelling.? He has been taking all his medications as prescribed.? He had ICD placed for low ejection fraction, but her tells me that on repeat testing his heart function returned back to normal.? He also has been taking all his blood thinners as prescribed. As per my conversation with patient's and review of chart from [facility].? Patient was admitted at [facility] in [place] earlier in June at that time he underwent PCI and pacemaker was placed because of slow heart rate.? Shortly after that patient was rehospitalized for pneumonia and was found to have Staphylococcus lugdunensis bacteremia for which he was discharged on oral doxycycline.? In October echocardiogram was done which showed moderate aortic stenosis with trace aortic regurgitation.? Patient was at [facility] multiple times in last 1 month for back pain for which he was diagnosed to have osteomyelitis and vertebral abscess.? He underwent from what sounds like IR guided aspiration which came out to be benign and no growth on culture so he was continued on doxycycline. Shortly after was put on ventilator for acute respiratory failure.? During the course of the day patient has gone up to 3 pressors including vasopressin, Levophed and dobutamine.? Transthoracic echocardiogram was done which was concerning for moderate aortic regurgitation, normal EF without regional wall motion abnormality. Given the presentation with chest pressure, sudden heart failure requiring ventilator support, cardiogenic shock requiring 3 pressors of moderate aortic stenosis there was a concern for aortic valve pathology hence TACOS was considered. During the day patient's pressor support have been coming down.? He is on Levophed of 10, prior vasopressin of 0.2, dobutamine of 2.5.? Patient continues to remain oliguric with persistent hyperkalemia.? His mean arterial pressures have remained around 70 with FiO2 of 50% saturating 95%. 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 Given presence of hyperkalemia decision was made to start dialysis.? Temporary dialysis catheter was placed by surgery team. Given finding of TACOS Case was discussed with cardiology and cardiothoracic surgery and they advised patient to be transferred to a higher center for possible aortic conduit replacement along with aortic valve replacement. Patient's care was discussed with cardiothoracic surgeon Dr. Franklin at [facility].? He stated that patient requires higher expertise in surgery than they can provide at [facility] and advised transfer to [facility] but he wanted to convey to the patient and patient's family that chances of survival of the hospitalization is next to 0%. Discussed all of the above with patient's next of kin/spouse Ms. Arenas.? We discussed that patient remains critically sick with cardiogenic shock, hypoxic respiratory failure on multiple pressors with a diagnosis of aortic root abscess and aortic regurgitation.? We discussed that recommendations of cardiothoracic surgeon at [facility] is to transfer to a higher center for highly critical surgery and chances of survival of the hospitalization given how sick Mr. Thomas is is next to 0%.? Ms. Arenas verbalized understanding and stated that if the patient is going to he would rather closer to family. She opted for hospice/comfort measures knowing that would mean that eventually patient would . Patient was placed on comfort measures. Eventually he and comfort status on 12/26 at 5:28 PM Additional Data Confirmation of as documented by pronouncing clinician: no pulse and no respirations Family: at bedside Additional persons at bedside: nursing staff Attending/PCP notified?: I am attending Was code activated?: No Autopsy requested?: No Advance directives?: No Hospice patient?: Yes Discharge Plan Discharge Patient Disposition: Condition: Stable Probable Cause of Probable cause of : Cardiogenic shock DS Attestations Time Spent in /Discharge Care*: greater than 30 min Quality - AMI: AMI present?: No Quality - Stroke: CVA present?: No Quality - VTE: VTE present?: No Deep Vein Thrombosis/Pulmonary Embolism Present on Admission: No Coding Level of Care Code Acute Teacher Private for Chg Fwd History Comprehensive Exam Comprehensive Medical Decision Making High Complexity Diagnoses Moderate aortic regurgitation I35.1 Staphylococcus aureus bacteremia R78.81; B95.61 Discitis of thoracolumbar region M46.45 Shock R57.9 Acute decompensated heart failure I50.9 JOCELYN (acute kidney injury) N17.9 Diabetes mellitus E11.9 HTN (hypertension) I10
--- NOTE | 2021-12-26 21:30 | PC.NURSE ---
Patient transferred to [facility] at this time by Canal Tender Radha Dan RN and SG Whittaker. Patient home is notified, awaiting MTS release.
== END 2021-12-26 21:30 | disposition expired | DRG 871 ==
LOC: ER 12-25 00:12 → ICU 12-25 00:33 → MEDSURG 12-26 15:15
PROVIDERS: Internal Medicine Nephrology; Admitting Provider Family Medicine; Emergency Provider Emergency Medicine; PCP Family Medicine; Visit Provider Student in an Organized Health Care Education/Training Program
DX: A41.9 Sepsis, unspecified organism (principal); I50.33 Acute on chronic diastolic (congestive) heart failure; R65.21 Severe sepsis with septic shock; J96.21 Acute and chronic respiratory failure with hypoxia; J18.9 Pneumonia, unspecified organism; I13.0 Hypertensive heart and chronic kidney disease with heart failure and stage 1 through stage 4 chronic kidney disease, or unspecified chronic kidney disease; M46.24 Osteomyelitis of vertebra, thoracic region; N17.9 Acute kidney failure, unspecified; G93.49 Other encephalopathy; I47.2 Ventricular tachycardia; R57.0 Cardiogenic shock; I35.8 Other nonrheumatic aortic valve disorders; E11.22 Type 2 diabetes mellitus with diabetic chronic kidney disease; N18.30 Chronic kidney disease, stage 3 unspecified; I95.9 Hypotension, unspecified; I35.1 Nonrheumatic aortic (valve) insufficiency; I48.0 Paroxysmal atrial fibrillation; I25.10 Atherosclerotic heart disease of native coronary artery without angina pectoris; I35.0 Nonrheumatic aortic (valve) stenosis; B95.61 Methicillin susceptible Staphylococcus aureus infection as the cause of diseases classified elsewhere; D72.829 Elevated white blood cell count, unspecified; M46.45 Discitis, unspecified, thoracolumbar region; E87.5 Hyperkalemia; R34 Anuria and oliguria; D64.9 Anemia, unspecified; Z79.01 Long term (current) use of anticoagulants; Z95.5 Presence of coronary angioplasty implant and graft; Z87.891 Personal history of nicotine dependence; Z95.810 Presence of automatic (implantable) cardiac defibrillator; Z51.5 Encounter for palliative care
CPT/HCPCS: 36415; 36416; 36600; 51702; 71045; 71260; 74177; 76770; 80048; 80051; 80053; 80202; 80306; 80307; 81001; 82330; 82436; 82550; 82570; 82803; 82805; 82962; 83605; 83690; 83735; 83880; 84100; 84133; 84145; 84156; 84300; 84484; 84550; 85025; 85378; 85651; 85730; 86038; 86060; 86140; 86403; 86706; 86803; 87040; 87340; 87486; 87581; 87633; 93005; 93306; 93312; 93320; 93325; 93970; 94002; 94660; 94664; 94799; 96365; 96366; 96367; 96372; 96375; 99291; 99292; C9113; J0330; J0610; J0692; J0743; J1250; J1644; J1650; J1720; J1815; J1940; J2270; J2405; J2704; J3010; J3370; J3475; J3490; J7030; J7040; J7050; P9047; Q9967